=== PATIENT | male | born 1955 | race African-American/Black ===

== ENCOUNTER 2017-01-16 09:17 | Inpatient (IN) | payer OTHER ==
[2017-01-16] MEDS ORDERED: D50W 25 GM/50 ML SYR IVP PRN (15:45)
[2017-01-16] MEDS ORDERED: SENNOSIDES 1 TAB PO PRN (15:46)
[2017-01-16] MEDS ORDERED: BISACODYL 10 MG SUPP PR PRN (15:46)
[2017-01-16] MEDS ORDERED: ACETAMINOPHEN 650 MG/20.3 ML UDCUP PO PRN (16:23)
--- NOTE | 2017-01-16 17:23 | GHP ---
[f rep st] HISTORY AND PHYSICAL POST ADMISSION PHYSICIAN EVALUATION AND REHABILITATION TREATMENT PLAN. DATE OF ADMISSION: 01/16/2017 DATE OF EVALUATION: January 16, 2017. TIME OF EVALUATION: 1530. REFERRING FACILITY: [facility]. IMPAIRMENT GROUP: [id number]. DATE OF ONSET: 01/09/2017. REFERRING PHYSICIAN: Dr. Jimenez. CONSULTING PHYSICIANS: Pulmonary and critical Care Dr. Vargas. PRIMARY CARE PHYSICIAN: Dr. Ari Jacobsen. REHABILITATION DIAGNOSIS: Subarachnoid hemorrhage with debility and cognitive impairment. ETIOLOGIC DIAGNOSIS: Traumatic, closed injury. HISTORY OF PRESENT ILLNESS: Patient is a 61-year-old man who was brought to the emergency room at [facility] for altered mental status. 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 One of the patient's coworkers noticed a large piece of metal had been removed from the gas tank on the vehicle and thought that it may have hit him in the head. He was very confused but alert and oriented x2 in the emergency department. He was denying any pain. Head CT showed a small right-sided subdural hematoma with associated subarachnoid hemorrhage and parenchymal bleeding at the base of the frontal lobe. The right frontal contusion measured 19 mm initially and later 21 mm. There was no midline shift. He was monitored with serial head CT scans, and determined that he did not have a surgical need. He was participating in therapies and ready for transfer to inpatient rehabilitation. HOSPITAL COMPLICATIONS: Included hyponatremia. STUDIES AND LABS IN THE HOSPITAL: I do not have a comprehensive list. LABORATORY STUDIES ON DISCHARGE: Showed hyponatremia with a sodium of 130. Renal function was otherwise within normal limits with a BUN of 21 and a creatinine of 0.94. His glucose was elevated at 154. This was drawn at 7:50 in the morning so it was likely fasting. Most recent head CT done on 01/11/2017 showed: 1. Slight interval enlargement of the right frontal hemorrhagic contusion to 21 mm. 2. Unchanged bifrontal subarachnoid hematomas and anterior parafalcine subdural hematoma. 3. Persistent regional sulcal effacement in the inferior right frontotemporal region without a significant midline shift. 4. Stable layering dense material in the sphenoid sinus. His cervical spine was cleared by CT scan on 01/09/2017. He had moderate central canal stenosis at C3-C4. Chest x-ray on 01/13 showed minimal left lung base atelectasis and otherwise was unremarkable. He had been taking aspirin prior to admission, but this was discontinued. Lisinopril dose was increased from 20 mg to 40 mg daily and minoxidil was added at 5 mg twice daily to achieve better blood pressure control. PRECAUTIONS: He is a fall risk and he has seizure precautions. ACTIVE COMORBIDITIES: He has the active comorbidity of diabetes mellitus with manifestation as a tier 3 comorbidity. He has no tier 1 or tier 2 comorbidities. PAST MEDICAL HISTORY: 1. Diabetes mellitus type 2. 2. Hypertension. PAST SURGICAL HISTORY: Discharge paperwork does not provide nor can he volunteer any past surgical history. PRE-HOSPITAL MEDICATIONS: 1. Amlodipine 10 mg p.o. daily. 2. Lisinopril 20 mg p.o. daily. 3. Aspirin 81 mg p.o. daily. 4. Atorvastatin 10 mg p.o. at bedtime. 5. Metformin 1000 mg p.o. twice daily. ADMISSION MEDICATIONS: 1. Amlodipine 10 mg p.o. daily. 2. Atorvastatin 5 mg p.o. at bedtime. 3. Famotidine 20 mg p.o. twice daily. 4. Levetiracetam 500 mg p.o. twice daily. 5. Lisinopril 40 mg p.o. daily. 6. Metformin 1000 mg p.o. twice daily. 7. Minoxidil 5 mg p.o. twice daily. FAMILY HISTORY: Noncontributory. PSYCHOSOCIAL HISTORY: He is . He lives with his . He has several adult children one of whom is local. He cannot remember the locations of the other two. He is a nonsmoker and nondrinker. 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 REVIEW OF SYSTEMS: He denies headache. He is not in pain otherwise other than some left hip pain with particular movements. He denies vision changes, weakness, numbness or tingling of the extremities. He denies difficulty swallowing. He denies nausea, vomiting, constipation, or diarrhea. He denies chest pain or palpitations. He denies cough or dyspnea. Otherwise, a 10-point review of systems is negative. PHYSICAL EXAM: VITAL SIGNS: Blood pressure is 146/73, heart rate is 73, respiratory rate is 20. Oxygen saturation is 99% on room air. Temperature is 36.8 degrees centigrade. His weight this morning, at [facility], was 95.8 kg. When he was admitted, his weight was recorded of 103.5 kg and at that point his body mass index was 31.8. GENERAL: This is a well-nourished, well- developed, obese man in bed, sleepy, cooperative and in no acute distress. HEENT: Extraocular movements are intact. Pupils are equal, round, and reactive to light. Mucous membranes are moist. Dentition is in good condition. He has halitosis. There are no oropharyngeal mucosal lesions noted and no posterior oropharyngeal mucus. NECK: Supple. HEART: There is a regular rate and rhythm with no murmurs, rubs, or gallops. LUNGS: Clear to auscultation bilaterally. ABDOMEN: Soft, nontender, nondistended with normoactive bowel sounds and no hepatosplenomegaly. EXTREMITIES: There is no cyanosis, clubbing, or edema. Radial and dorsalis pedis pulses are 2+ bilaterally. NEUROLOGIC: He is alert and oriented x3. He has delayed responses and slow processing. Cranial nerves 2-12 are grossly intact. There is no focal weakness. Sensation is intact to light touch. Deep tendon reflexes are 2+ bilaterally at the biceps, patellar, and Achilles tendons. He appears to have a motor planning deficit when asked to sit up though he is eventually able to rise to seated from supine independently and his seated balance appears to be intact. His plantar reflexes bilaterally are downgoing. SKIN: He does not appear to have any rashes or skin lesions. CURRENT LEVEL OF FUNCTION PER THE PREADMISSION SCREEN: Regarding grooming, he required minimal assistance at the sink. For bathing, dressing and toileting he needed assistance. Bed mobility and transfers were accomplished with minimal assistance. He was using a front-wheeled walker. Balance was noted to be poor needing moderate assistance to contact guard assistance. Endurance was poor. He was able to ambulate 300 feet with minimal assistance and a front- wheeled walker. Regarding communication, he was noted to have impaired linguistic skills. Regarding cognition, he was noted to have [id number] cognitive dysfunction needing cueing. He had poor memory, reduced auditory comprehension, disorientation, slow processing and decreased attention. IMPRESSION: Patient is a 61-year-old man who suffered a subdural hematoma and intraparenchymal hemorrhagic contusion of the frontal lobes, primarily the right frontal lobe. Unclear whether this was traumatic or due to hypertension. He was evaluated and treated at [facility] by the Neurosurgery service. Serial head CTs ruled out any need for surgical intervention. He had improved blood pressure control with the increase of lisinopril and the addition of minoxidil and was stabilized and ready for inpatient rehabilitation. He has major deficits in cognition, balance and activities of daily living. He is appropriate for inpatient rehabilitation. He will benefit from physical and occupational therapy to optimize his mobility and activities of daily living and speech therapy to optimize his cognitive function. Additionally, he will have nursing care regarding fall risk, bowel and bladder, medication administration, skin integrity, and medication education and he will have the care of a physician regarding hypertension, diabetes mellitus, and glycemic control and risk for neurologic deterioration. His goal is to return home with his family. For a safe discharge, he will need to achieve modified independence to supervision level for cognition, ADLs, mobility and medication management. There will need to be neurologic education for him and his family as well as diabetic education and nutritional education. He will receive therapy with physical therapy, occupational therapy, and speech and language pathology for 60 minutes per day for each discipline on 5-7 days of the week. His expected duration of stay is 14-17 days. It is anticipated that upon discharge he will continue to benefit from home health services including speech and language pathology, social work and physical therapy. Additionally, he will benefit from a brain injury support group. ASSESSMENT AND PLAN: 1. Debility status post subdural hemorrhage and intraparenchymal brain contusion primarily of the right frontal lobe. Physical and occupational therapy to optimize mobility and activities of daily living. 2. Cognitive impairment status post intracerebral hemorrhages. To be assessed and treated per Speech and Language Pathology. 3. Hypertension. He has had titration and addition of blood pressure medications. It is unclear why he is on minoxidil rather than a diuretic. Will monitor his blood pressure and if it is well controlled will likely make no changes. 4. Diabetes mellitus type 2. Continue metformin. He additionally has been managed on an insulin sliding scale which will be continued. If he is needing significant amounts of insulin, insulin can either be changed to a long-acting formulation at bedtime such as insulin glargine or an additional oral hypoglycemic agent can be added with a goal of avoiding the need for insulin at home. 5. Risk for seizures associated with intracerebral hemorrhage. He has been treated with levetiracetam. There has been no seizure activity per the discharge information available from [facility]. He is to continue levetiracetam for 2 more days through 01/18/2017. 6. Hyponatremia. There is no order for fluid restriction. This morning his sodium was 130. I will repeat a BMP tomorrow morning and he can be evaluated for a need for fluid restriction. 7. Dense material seen in the sinuses on head CT and halitosis. Evaluate further regarding symptoms of sinusitis and if there are symptoms that can be treated with antibiotics and/or a decongestant and nasal steroid. /[id number]/MODL MTDD
[2017-01-16] MEDS: metFORMIN HCL 500 MG TAB PO SCH (17:47)
[2017-01-16] MEDS: ACETAMINOPHEN 325 MG TAB PO PRN (17:47)
[2017-01-16] MEDS: INSULIN LISPRO 100 UNIT/ML SC SCH (18:32)
[2017-01-16] MEDS: ATORVASTATIN CALCIUM 10 MG TAB PO SCH (20:25)
[2017-01-16] MEDS: levETIRAcetam 500 MG TAB PO SCH (20:25)
[2017-01-16] MEDS: FAMOTIDINE 20 MG TAB PO SCH (20:26)
[2017-01-16] MEDS: MINOXIDIL 2.5 MG TAB PO SCH (20:26)
[2017-01-16] MEDS: AQUAPHOR OINTMENT 3.5 OZ JAR TP SCH (20:29)
[2017-01-17 07:00] LABS: % IMMATURE GRANULYOCYTES 0.3 % (0.0-1.1); ABSOLUTE IMMATURE GRANULOCYTES 0.03 10^3/uL (0.00-0.10); ADD DIFF? NO; ADD MORPH? NO; ADD SCAN? NO; ATYPICAL LYMPHOCYTE FLAG 10 (0-99); FRAGMENT RBC FLAG 0 (0-99); HEMOGLOBIN 14.6 g/dL (13.7-17.5); LEFT SHIFT FLG 0 (0-99); LIPEMIA HEMOLYSIS FLAG 80 (0-99); MEAN CELL HEMOGLOBIN 26.3 pg (27.9-34.1); MEAN CELL HEMOGLOBIN CONCENTR. 32.4 g/dL (32.4-36.7); MEAN CELL VOLUME 81.1 fL (81.5-99.8); MEAN PLATELET VOLUME 10.2 fL (8.7-11.7); PLATELET CLUMPS FLAG 0 (0-99); PLATELET COUNT 325 10^3/uL (150-400); RED BLOOD CELL COUNT 5.55 10^6/uL (4.40-6.38); RED CELL DISTRIBUTION WIDTH 14.1 % (11.5-15.2)
[2017-01-17 07:08] LABS: ANION GAP 14 mEq/L (8-16); CALCIUM 9.3 mg/dL (8.5-10.4); CARBON DIOXIDE 23 mEq/l (22-31); CHLORIDE 97 mEq/L (97-110); GLOMERULAR FILTRATION RATE > 60; GLUCOSE 147 mg/dL (70-100); POTASSIUM 4.3 mEq/L (3.5-5.2); SODIUM 134 mEq/L (134-144)
[2017-01-17] MEDS: ACETAMINOPHEN 325 MG TAB PO PRN ×2 (09:28→16:15)
[2017-01-17] MEDS: FAMOTIDINE 20 MG TAB PO SCH ×2 (09:28→21:20)
[2017-01-17] MEDS: INSULIN LISPRO 100 UNIT/ML SC SCH ×3 (09:28→18:54)
[2017-01-17] MEDS: metFORMIN HCL 500 MG TAB PO SCH ×2 (09:30→18:47)
[2017-01-17] MEDS: LISINOPRIL 40 MG TAB PO SCH (09:30)
[2017-01-17] MEDS: levETIRAcetam 500 MG TAB PO SCH ×2 (09:30→21:20)
[2017-01-17] MEDS: AQUAPHOR OINTMENT 3.5 OZ JAR TP SCH ×2 (09:30→21:21)
[2017-01-17] MEDS: MINOXIDIL 2.5 MG TAB PO SCH ×2 (09:31→21:18)
--- NOTE | 2017-01-17 10:44 | PDOREHIP ---
Admission [facility] - Admission - 3 Day Assessment Period Admission Date/Day 1: 01/16/17 Day 2: 01/17/17 Day 3: 01/18/17 - Active Diagnoses Comorbidities and Co-existing Conditions at Admission: . None of the Above - Skin Conditions Unhealed Pressure Ulcer (1 or more/Stage 1 or >)-Admission: 0. No
--- NOTE | 2017-01-17 10:50 | SOAPPROG ---
SOAP Progress Note Assessment/Plan: Assessment: Patient is a 61-year-old man who suffered a subdural hematoma and intraparenchymal hemorrhagic contusion of the frontal lobes, primarily the right frontal lobe, history most consistent with TBI. He was evaluated and treated at [facility] by the Neurosurgery service, non operatively. Serial head CTs ruled out any need for surgical intervention. 01/17/2017- Patient is doing well today. Labs indicates an elevated BUN to creatinine ratio indicating some dehydration. Encouraged PO fluids. He does not complain of any history of sinus problems, will avoid treating with antibiotics for now. His the street seems consistent with a traumatic brain injury, however the severity is unclear based on the history was able to obtain from him today. It would be at least mild, complicated, but likely more severe. Also, given his recent tachycardia and drop in blood pressure, I will also check a D dimer. He denies any chest pain or shortness of breath that would be concerning for a pulmonary embolism, but will follow-up with additional tests if necessary. He is currently not on anticoagulation for DVT prophylaxis. He is outside of the window of most acute risk for bleeding, and he is at high risk for DVT development. Left hip pain possibly after trauma, getting x-rays and treating symptomatically. This is the first time meeting and evaluating this patient and all medical issues are new to me. 1. Impairments in mobility and self care status post subdural hemorrhage, subdural hematoma and intraparenchymal brain contusion primarily of the right frontal lobe. Physical and occupational therapy to optimize mobility and activities of daily living. 2. Cognitive impairment status post intracerebral hemorrhages. To be assessed and treated per Speech and Language Pathology. 3. Hypertension. He has had titration and addition of blood pressure medications. It is unclear why he is on minoxidil rather than a diuretic. Will monitor his blood pressure and if it is well controlled will likely make no changes. 4. Diabetes mellitus type 2. Continue metformin. He additionally has been managed on an insulin sliding scale which will be continued. If he is needing significant amounts of insulin, insulin can either be changed to a long-acting formulation at bedtime such as insulin glargine or an additional oral hypoglycemic agent can be added with a goal of avoiding the need for insulin at home. 5. Risk for seizures associated with intracerebral hemorrhage. He has been treated with levetiracetam. There has been no seizure activity per the discharge information available from [facility]. He is to continue levetiracetam for 2 more days through 01/18/2017. 6. He has no immobility and he has ambulated as far as 300 feet. He is not at high risk for deep venous thrombosis and will not receive any pharmacologic prophylaxis. 7. Hyponatremia. There is no order for fluid restriction. This morning his sodium was 130. I will repeat a BMP tomorrow morning and he can be evaluated for a need for fluid restriction. 8. Dense material seen in the sinuses on head CT and halitosis. Evaluate further regarding symptoms of sinusitis and if there are symptoms that can be treated with antibiotics and/or a decongestant and nasal steroid. 9. Prophylaxis: start low dose heparin for DVT prophylaxis. Checking D dimer to rule out existing DVT. Based on record review, I do not see that he has had Doppler studies. 10. Hip pain, left: patient had hip pain after his fall, unclear temporal relationship. Interfering with therapy. Plan to get hip x-rays and treat symptomatically. 11. Dehydration: Elevated BUN to creatinine ratio, encouraging PO fluids. He has a PICC if needed for IV fluids. Dispo: ELOS 14-17 days, plan to discharge home with family, goal of mod I to supervision for ADLs, mobility, and cog issues. Plan: 01/17/17 10:46 01/17/17 10:55 01/17/17 11:08 Subjective: CC: hip pain, blood pressure changes No acute events overnight. Patient endorses some left-sided hip pain worse with standing, relieved by lying down. Temporal relationship to his incident is unclear, but was noticed for the first time a few days after his admission to the hospital. Nurse reported to me today that he was a bit vasovagal with the pain on standing today for therapies. He also denies remembering the accident, his spouse explained the presence of a heavy plate guarding a gas tank that was on the floor near where he was. He was working on this overhead. Patient denies any shortness of breath or chest pain. Has never had blood clots before. Denies any lower extremity swelling. Objective: Vital Signs Temp Pulse Resp BP Pulse Ox 37.2 C 111 H 14 125/80 H 94 01/17/17 09:20 01/17/17 09:20 01/17/17 08:48 01/17/17 09:31 01/17/17 08:48 Laboratory Results 01/17/17 05:30 01/17/17 05:30 01/16/17 01/17/17 01/18/17 05:59 05:59 05:59 Intake Total 100 125 Output Total 1200 Balance -1100 125 Physical Exam - Physical Exam General Appearance: alert (but sleepy), no apparent distress EENT: No scleral icterus (R), No scleral icterus (L) Respiratory: normal breath sounds, No respiratory distress, No accessory muscle use, No wheezing Cardiac/Chest: normal peripheral pulses, regular rate, rhythm, No edema Skin: normal color, warm/dry, No cyanosis Extremities: other ( He had tenderness at the superior aspect of the left greater trochanter, no swelling, no redness, he had pain with internal rotation that localized to the lateral hip, pain with internal rotation with flexion also in the lateral hip, and some groin pain when the hip was manually abducted. ), No swelling Neuro/Psych: normal mood/affect ICD10 Worksheet Patient Problems: Problems Problem Status Onset Hypotension Acute Left hip pain Acute DM2 (diabetes mellitus, type 2) Acute HTN (hypertension) Acute SDH (subdural hematoma) Acute - ICD10 Problem Qualifiers (1) Left hip pain (2) Hypotension Qualifiers: Hypotension type: orthostatic hypotension Trimester: T Qualified Code(s) : I95.1 - Orthostatic hypotension
[2017-01-17] MEDS: HEPARIN 5,000 UNIT/0.5 ML SYR SC SCH ×2 (16:16→21:18)
[2017-01-17] MEDS: ATORVASTATIN CALCIUM 10 MG TAB PO SCH (21:19)
[2017-01-18] MEDS: FAMOTIDINE 20 MG TAB PO SCH ×2 (09:42→21:06)
[2017-01-18] MEDS: INSULIN LISPRO 100 UNIT/ML SC SCH ×3 (09:42→17:12)
[2017-01-18] MEDS: HEPARIN 5,000 UNIT/0.5 ML SYR SC SCH ×3 (09:42→21:10)
[2017-01-18] MEDS: ACETAMINOPHEN 325 MG TAB PO PRN ×2 (09:42→14:43)
[2017-01-18] MEDS: levETIRAcetam 500 MG TAB PO SCH ×2 (09:43→21:06)
[2017-01-18] MEDS: metFORMIN HCL 500 MG TAB PO SCH ×2 (09:43→17:12)
[2017-01-18] MEDS: MINOXIDIL 2.5 MG TAB PO SCH ×2 (09:43→21:09)
[2017-01-18] MEDS: AQUAPHOR OINTMENT 3.5 OZ JAR TP SCH ×2 (09:43→21:09)
[2017-01-18] MEDS: LISINOPRIL 40 MG TAB PO SCH (09:44)
[2017-01-18] MEDS: METHYL SALICYLATE/MENTHOL OINTMENT TP PRN (11:29)
--- NOTE | 2017-01-18 11:36 | SOAPPROG ---
SOAP Progress Note Assessment/Plan: Assessment: Patient is a 61-year-old man who suffered a subdural hematoma and intraparenchymal hemorrhagic contusion of the frontal lobes, primarily the right frontal lobe, history most consistent with TBI. He was evaluated and treated at [facility] by the Neurosurgery service, non operatively. Serial head CTs ruled out any need for surgical intervention. 01/18/2017- Hip plain films were negative, sodium in the normal range. Overall doing well, no particular concerns today. He was somewhat sleepy, hip pain is improving with some thematic managements, family was not available for further discussion. Continue therapy plan. 1. Impairments in mobility and self care status post subdural hemorrhage, subdural hematoma and intraparenchymal brain contusion primarily of the right frontal lobe. Physical and occupational therapy to optimize mobility and activities of daily living. 2. Cognitive impairment status post intracerebral hemorrhages. To be assessed and treated per Speech and Language Pathology. 3. Hypertension. He has had titration and addition of blood pressure medications. It is unclear why he is on minoxidil rather than a diuretic. Will monitor his blood pressure and if it is well controlled will likely make no changes. 4. Diabetes mellitus type 2. Continue metformin. He additionally has been managed on an insulin sliding scale which will be continued. If he is needing significant amounts of insulin, insulin can either be changed to a long-acting formulation at bedtime such as insulin glargine or an additional oral hypoglycemic agent can be added with a goal of avoiding the need for insulin at home. 5. Risk for seizures associated with intracerebral hemorrhage. He has been treated with levetiracetam. There has been no seizure activity per the discharge information available from [facility]. He is to continue levetiracetam through 01/18/2017, then stop. 6. Immobility: has been in bed with pain, heparin sc TID for DVT prophylaxis. 7. Hyponatremia. There is no order for fluid restriction. Na on 01/17 was 134 , monitor. 8. Dense material seen in the sinuses on head CT and halitosis. Evaluate further regarding symptoms of sinusitis and if there are symptoms that can be treated with antibiotics and/or a decongestant and nasal steroid. 9. Tachycardia and hypotension- was episodic, slightly elevated d-dimer, but history of recent minor trauma. Continue to monitor with a low threshold for further imaging if indicated. 10. Hip pain, left: patient had hip pain after his fall, unclear temporal relationship. Interfering with therapy. Plan to get hip x-rays and treat symptomatically. 11. Dehydration: Elevated BUN to creatinine ratio, encouraging PO fluids. He has a PICC if needed for IV fluids. Dispo: ELOS 14-17 days, plan to discharge home with family, goal of mod I to supervision for ADLs, mobility, and cog issues. 01/17/17 10:46 01/17/17 10:55 01/17/17 11:08 01/18/17 11:32 Subjective: CC: hip pain No acute events overnight, patient endorses that the hip pain continues to improve. Mostly with symptomatic management with pain medications, heat and cold. Plain films showed enthesopathy, no fractures. No chest pain, shortness of breath, or new numbness, tingling, or weakness. Objective: Vital Signs Temp Pulse Resp BP Pulse Ox 37.0 C 100 15 144/68 H 95 01/18/17 08:00 01/18/17 09:38 01/18/17 08:00 01/18/17 09:43 01/18/17 08:00 Laboratory Results 01/17/17 05:30 01/17/17 05:30 01/17/17 01/18/17 01/19/17 05:59 05:59 05:59 Intake Total 100 1275 500 Output Total 1200 800 Balance -1100 475 500 Physical Exam - Physical Exam General Appearance: WD/WN, alert, no apparent distress EENT: No scleral icterus (R), No scleral icterus (L) Respiratory: normal breath sounds, No respiratory distress, No accessory muscle use Cardiac/Chest: normal peripheral pulses, regular rate, rhythm, No edema Skin: normal color, warm/dry, No cyanosis Extremities: normal inspection, No pedal edema, No swelling Neuro/Psych: normal mood/affect ICD10 Worksheet Patient Problems: Problems Problem Status Onset Hypotension Acute Left hip pain Acute DM2 (diabetes mellitus, type 2) Acute HTN (hypertension) Acute SDH (subdural hematoma) Acute - ICD10 Problem Qualifiers (1) Left hip pain (2) Hypotension Qualifiers: Hypotension type: orthostatic hypotension Trimester: T Qualified Code(s) : I95.1 - Orthostatic hypotension
[2017-01-18] MEDS: ATORVASTATIN CALCIUM 10 MG TAB PO SCH (21:05)
[2017-01-19] MEDS: HEPARIN 5,000 UNIT/0.5 ML SYR SC SCH ×3 (06:03→21:13)
[2017-01-19] MEDS: INSULIN LISPRO 100 UNIT/ML SC SCH ×3 (08:44→17:28)
[2017-01-19] MEDS: FAMOTIDINE 20 MG TAB PO SCH ×2 (08:45→21:12)
[2017-01-19] MEDS: metFORMIN HCL 500 MG TAB PO SCH ×2 (08:45→17:26)
[2017-01-19] MEDS: LISINOPRIL 40 MG TAB PO SCH (08:46)
[2017-01-19] MEDS: MINOXIDIL 2.5 MG TAB PO SCH (08:49)
--- NOTE | 2017-01-19 09:08 | SOAPPROG ---
SOAP Progress Note Assessment/Plan: Assessment: 61-year-old man who suffered a subdural hematoma and intraparenchymal hemorrhagic contusion of the frontal lobes, primarily the right frontal lobe, history most consistent with TBI. He was evaluated and treated at [facility] by the Neurosurgery service, non operatively. Serial head CTs ruled out any need for surgical intervention. * Debility status post subdural hemorrhage and intraparenchymal brain contusion primarily of the right frontal lobe, with impairments in mobility and self care . Physical and occupational therapy to optimize mobility and activities of daily living. * Cognitive impairment status post intracerebral hemorrhages. Slow processing. Continue Speech and Language Pathology. * Hypertension. Orthostatic by pulse yesterday 01/18/17. D/C minoxidil. Was dry on BMP 01/17/17. Will give IV fluids, 500 cc NS slowly today 01/19/17; repeat BMP in AM 01/20/17. * Lethargy. Nothing else neurologic indicating need for repeat head CT. Observe for improvement with hydration. * Diabetes mellitus type 2. Continue metformin. BS not high enough to require insulin. * L hip pain. Normal joint on XR; iliac enthesopathy is likely an incidental finding. Continue APAP; additional analgesics if pain interferes with function. * Risk for seizures associated with intracerebral hemorrhage. Levetiracetam discontinued after 01/18/2017. Continue seizure precautions. * Hyponatremia. Resolved. Sodium was 130 on 01/16/17; 134 on 01/17/17. * Dense material seen in the sinuses on head CT and halitosis. Evaluate further regarding symptoms of sinusitis and if there are symptoms that can be treated with antibiotics and/or a decongestant and nasal steroid. 01/19/17 13:32 Subjective: C/O ARRIAGA, 2/10, over eyes. Worsens to 4/10 with standing. No cough/dyspnea, no f /c. Objective: Vital Signs Temp Pulse Resp BP Pulse Ox 36.4 C 81 16 115/61 94 01/19/17 06:31 01/19/17 06:31 01/19/17 06:31 01/19/17 06:31 01/19/17 06:31 Laboratory Results 01/17/17 05:30 01/17/17 05:30 01/18/17 01/19/17 01/20/17 05:59 05:59 05:59 Intake Total 7373 1410 Output Total 800 800 Balance 475 610 Physical Exam - Physical Exam General Appearance: WD/WN, alert, no apparent distress Respiratory: normal breath sounds, No crackles, No rhonchi, No wheezing Cardiac/Chest: regular rate, rhythm, No edema Skin: normal color, warm/dry Neuro/Psych: no motor/sensory deficits, alert, normal mood/affect, cognition abnormalities (slow processing), No motor weakness ICD10 Worksheet Patient Problems: Problems Problem Status Onset Hypotension Acute Left hip pain Acute DM2 (diabetes mellitus, type 2) Acute HTN (hypertension) Acute SDH (subdural hematoma) Acute
[2017-01-19] MEDS: AQUAPHOR OINTMENT 3.5 OZ JAR TP SCH ×2 (10:59→21:12)
[2017-01-19] MEDS ORDERED: ALTEPLASE 2 MG VIAL IVP ONE (13:59)
[2017-01-19] MEDS ORDERED: NS 1,000 ML IV SCH (14:00)
[2017-01-19] MEDS: ATORVASTATIN CALCIUM 10 MG TAB PO SCH (21:11)
[2017-01-20] MEDS: HEPARIN 5,000 UNIT/0.5 ML SYR SC SCH ×3 (05:46→20:58)
[2017-01-20] MEDS: metFORMIN HCL 500 MG TAB PO SCH ×2 (07:46→17:31)
[2017-01-20] MEDS: INSULIN LISPRO 100 UNIT/ML SC SCH ×3 (07:46→17:30)
[2017-01-20] MEDS: FAMOTIDINE 20 MG TAB PO SCH ×2 (07:47→20:57)
[2017-01-20] MEDS: LISINOPRIL 40 MG TAB PO SCH (07:47)
[2017-01-20] MEDS: ACETAMINOPHEN 325 MG TAB PO PRN ×2 (07:48→13:03)
[2017-01-20] MEDS: AQUAPHOR OINTMENT 3.5 OZ JAR TP SCH ×2 (07:48→21:01)
[2017-01-20] MEDS: METHYL SALICYLATE/MENTHOL OINTMENT TP PRN ×2 (07:48→13:05)
--- NOTE | 2017-01-20 10:43 | SOAPPROG ---
SOAP Progress Note Assessment/Plan: Assessment: 61-year-old man who suffered a subdural hematoma and intraparenchymal hemorrhagic contusion of the frontal lobes, primarily the right frontal lobe, history most consistent with TBI. He was evaluated and treated at [facility] by the Neurosurgery service, non operatively. Serial head CTs ruled out any need for surgical intervention. * Debility status post subdural hemorrhage and intraparenchymal brain contusion primarily of the right frontal lobe, with impairments in mobility and self care . Physical and occupational therapy to optimize mobility and activities of daily living. * Cognitive impairment status post intracerebral hemorrhages. Slow processing. Continue Speech and Language Pathology. * Hypertension. Orthostatic by pulse yesterday 01/18/17. D/C minoxidil. Was dry on BMP 01/17/17. Will give IV fluids, 500 cc NS slowly today 01/19/17. * Lethargy. Nothing else neurologic indicating need for repeat head CT. Improved 01/20/17 after IV hydration. * Diabetes mellitus type 2. Continue metformin. BS not high enough to require insulin. Consider second PO agent; await normalization of appetite & PO intake. * L hip pain. Normal joint on XR; iliac enthesopathy is likely an incidental finding. Continue APAP; additional analgesics if pain interferes with function. Modalities per PT. Chronic/stable conditions: * Risk for seizures associated with intracerebral hemorrhage. Levetiracetam discontinued after 01/18/2017. Continue seizure precautions. * Hyponatremia. Resolved. Sodium was 130 on 01/16/17; 134 on 01/17/17. * Dense material seen in the sinuses on head CT and halitosis. Halitosis resolved. No S/Sx sinusitis. 01/20/17 10:40 Subjective: No complaints. Denies ARRIAGA or lightheadedness. Nursing reports loose stool. More alert today. Slept well. Has L hip pain worse after activity with PT. Objective: Vital Signs Temp Pulse Resp BP Pulse Ox 37.2 C 80 16 138/70 H 94 01/20/17 05:53 01/20/17 07:45 01/20/17 05:53 01/20/17 07:47 01/20/17 05:53 Laboratory Results 01/17/17 05:30 01/17/17 05:30 01/19/17 01/20/17 01/21/17 05:59 05:59 05:59 Intake Total 1410 1571 940 Output Total 800 300 Balance 610 1271 940 Physical Exam - Physical Exam General Appearance: WD/WN, alert, no apparent distress Respiratory: normal breath sounds, No crackles, No rhonchi, No wheezing Cardiac/Chest: regular rate, rhythm, No edema Skin: normal color, warm/dry Neuro/Psych: alert, normal mood/affect, cognition abnormalities (Slow processing ) ICD10 Worksheet Patient Problems: Problems Problem Status Onset Hypotension Acute Left hip pain Acute DM2 (diabetes mellitus, type 2) Acute HTN (hypertension) Acute SDH (subdural hematoma) Acute
[2017-01-20] MEDS: BENEFIBER/NUTRISOURCE FIBER PKT 1 EACH PO SCH ×2 (14:01→20:57)
[2017-01-20] MEDS: ATORVASTATIN CALCIUM 10 MG TAB PO SCH (20:57)
[2017-01-21] MEDS: HEPARIN 5,000 UNIT/0.5 ML SYR SC SCH ×3 (06:29→21:08)
[2017-01-21] MEDS: INSULIN LISPRO 100 UNIT/ML SC SCH ×3 (08:28→17:44)
[2017-01-21] MEDS: BENEFIBER/NUTRISOURCE FIBER PKT 1 EACH PO SCH ×2 (09:26→21:08)
[2017-01-21] MEDS: metFORMIN HCL 500 MG TAB PO SCH ×2 (09:26→17:33)
[2017-01-21] MEDS: FAMOTIDINE 20 MG TAB PO SCH ×2 (09:27→21:16)
[2017-01-21] MEDS: LISINOPRIL 40 MG TAB PO SCH (09:27)
--- NOTE | 2017-01-21 14:23 | SOAPPROG ---
SOAP Progress Note Assessment/Plan: Assessment: 61-year-old man who suffered a subdural hematoma and intraparenchymal hemorrhagic contusion of the frontal lobes, primarily the right frontal lobe, history most consistent with TBI. He was evaluated and treated at [facility] by the Neurosurgery service, non operatively. Serial head CTs ruled out any need for surgical intervention. * Debility status post subdural hemorrhage and intraparenchymal brain contusion primarily of the right frontal lobe, with impairments in mobility and self care . Initial FIM 61 on 01/21/17. Walked 120' FWW SBA. Needs extra time for motor planning for bed mobility. and cues to initiation and persist with activities. Hip pain is distracting. Continue physical and occupational therapy to optimize mobility and activities of daily living. * Cognitive impairment status post intracerebral hemorrhages. 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 Slow processing impacts communication, memory, problem solving and executive functioning. Continue Speech and Language Pathology. * Hypertension. Orthostatic by pulse 01/18/17. D/C minoxidil. Was dry on BMP . Received IV fluids 01/19/17 and was more alert . BP adequately controlled. * Lethargy. Nothing else neurologic indicating need for repeat head CT. Improved 01/20/17 after IV hydration. * Diabetes mellitus type 2. Continue metformin. BS not high enough to require insulin. Consider second PO agent; await normalization of appetite & PO intake. * L hip pain. Normal joint on XR; iliac enthesopathy is likely an incidental finding. Exam c/w possible trochanteric bursitis. Will schedule celecoxib. Continue APAP PRN. Modalities per PT. Consider MRI scan vs referral for bursa injection. Chronic/stable conditions: * Risk for seizures associated with intracerebral hemorrhage. Levetiracetam discontinued after 01/18/2017. Continue seizure precautions. * Hyponatremia. Resolved. Sodium was 130 on 01/16/17; 134 on 01/17/17. * Dense material seen in the sinuses on head CT and halitosis. Halitosis resolved. No S/Sx sinusitis. Attended staffing, 15 min. D/W case mgmt, nursing, PT, OT, GLOBAL COORDINATOR. Lives with ; has local daughter. 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 Goal of independence for discharge home. Discharge date set for 02/04/17. 01/21/17 14:25 Subjective: c/O L hip pain, interferes with therapies. OK once he's up and walking. Feels stiff and painful adrian in AM upon arising. O/W w/out complaint. No cough/ dyspnea, f/c. Objective: Vital Signs Temp Pulse Resp BP Pulse Ox 37.0 C 81 16 126/67 H 96 01/21/17 07:06 01/21/17 07:06 01/21/17 07:06 01/21/17 09:27 01/21/17 07:06 Laboratory Results 01/17/17 05:30 01/17/17 05:30 01/20/17 01/21/17 01/22/17 05:59 05:59 05:59 Intake Total 1571 2170 236 Output Total 300 Balance 1271 2170 236 - Time Spent With Patient Time Spent With Patient: Greater than 35 minutes floor time today, including more than 50% of time in coordination of care during staffing meeting, and counseling patient. Physical Exam - Physical Exam General Appearance: WD/WN, alert, no apparent distress Respiratory: normal breath sounds, No crackles, No rhonchi Cardiac/Chest: regular rate, rhythm, No bradycardia, No tachycardia, No diastolic murmur, No systolic murmur Skin: normal color, warm/dry Extremities: other (tender pasterior aspect of L greater trochanter) Neuro/Psych: no motor/sensory deficits, alert, normal mood/affect, oriented x 3 , cognition abnormalities (slow processing) ICD10 Worksheet Patient Problems: Problems Problem Status Onset Hypotension Acute Left hip pain Acute DM2 (diabetes mellitus, type 2) Acute HTN (hypertension) Acute SDH (subdural hematoma) Acute
[2017-01-21] MEDS: AQUAPHOR OINTMENT 3.5 OZ JAR TP SCH ×2 (17:41→21:16)
[2017-01-21] MEDS: ACETAMINOPHEN 325 MG TAB PO PRN (20:15)
[2017-01-21] MEDS: ATORVASTATIN CALCIUM 10 MG TAB PO SCH (21:07)
[2017-01-22] MEDS: HEPARIN 5,000 UNIT/0.5 ML SYR SC SCH ×3 (05:55→21:41)
[2017-01-22] MEDS: INSULIN LISPRO 100 UNIT/ML SC SCH ×3 (08:09→20:08)
[2017-01-22] MEDS: metFORMIN HCL 500 MG TAB PO SCH ×2 (08:11→17:40)
[2017-01-22] MEDS: ACETAMINOPHEN 325 MG TAB PO PRN ×2 (08:12→14:18)
[2017-01-22] MEDS: BENEFIBER/NUTRISOURCE FIBER PKT 1 EACH PO SCH ×2 (09:20→21:42)
[2017-01-22] MEDS: LISINOPRIL 40 MG TAB PO SCH (09:20)
[2017-01-22] MEDS: FAMOTIDINE 20 MG TAB PO SCH ×2 (09:20→21:40)
--- NOTE | 2017-01-22 09:29 | SOAPPROG ---
SOAP Progress Note Assessment/Plan: Assessment: 61-year-old man who suffered a subdural hematoma and intraparenchymal hemorrhagic contusion of the frontal lobes, primarily the right frontal lobe, history most consistent with TBI (probably moderate in severity given [employer] of probably > 24 hr, intracranial hemorrhage). He was evaluated and treated at [facility] by the Neurosurgery service, non operatively. Serial head CTs ruled out any need for surgical intervention. 01/22/2017 doing very well today, continues to have chronic bilateral hip and low back pain, he states it is not impairing his current progress and is managed by heat, ice, and PRN medications. Continue to monitor, continue plan below. * Debility status post subdural hemorrhage and intraparenchymal brain contusion primarily of the right frontal lobe, with impairments in mobility and self care . Initial FIM 61 on 01/21/17. Walked 120' FWW SBA. Needs extra time for motor planning for bed mobility. and cues to initiation and persist with activities. Continue physical and occupational therapy to optimize mobility and activities of daily living. * Cognitive impairment status post intracerebral hemorrhages. 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 Slow processing impacts communication, memory, problem solving and executive functioning. Continue Speech and Language Pathology. * Hypertension. Orthostatic by pulse 01/18/17. D/C minoxidil. Was dry on BMP . Received IV fluids 01/19/17 and was more alert . BP adequately controlled. * Lethargy. Nothing else neurologic indicating need for repeat head CT. Improved 01/20/17 after IV hydration. * Diabetes mellitus type 2. Continue metformin. BS not high enough to require insulin. Consider second PO agent; await normalization of appetite & PO intake. * L hip pain. Normal joint on XR; iliac enthesopathy is likely an incidental finding. Exam c/w possible trochanteric bursitis. Will schedule celecoxib. Continue APAP PRN. Modalities per PT. Consider MRI scan vs referral for bursa injection. Chronic/stable conditions: * Risk for seizures associated with intracerebral hemorrhage. Levetiracetam discontinued after 01/18/2017. Continue seizure precautions. * Hyponatremia. Resolved. Sodium was 130 on 01/16/17; 134 on 01/17/17. * Dense material seen in the sinuses on head CT and halitosis. Halitosis resolved. No S/Sx sinusitis. Lives with ; has local daughter. 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 Goal of independence for discharge home. Discharge date set for 02/04/17. 01/17/17 10:46 01/17/17 10:55 01/17/17 11:08 01/18/17 11:32 01/22/17 09:25 01/22/17 09:28 Subjective: CC: hip pain no acute events overnight. Patient continues to participate well in therapies, he is happy with progress. Glucose 87 - 178. he endorses some continued bilateral back/hip pain, feels that it is adequately managed with PRN medications and with heat and ice. He states it is premorbid, similar level of pain compared to before his accident. He also mentioned that the first thing he remembers after the accident as being on a regular acute-care floor in the hospital, not the emergency department or the ICU. Objective: Vital Signs Temp Pulse Resp BP Pulse Ox 36.8 C 86 16 121/72 H 96 01/22/17 06:01 01/22/17 06:01 01/22/17 06:01 01/22/17 09:21 01/22/17 06:01 Laboratory Results 01/17/17 05:30 01/17/17 05:30 01/21/17 01/22/17 01/23/17 05:59 05:59 05:59 Intake Total 2170 472 350 Balance 2170 472 350 Physical Exam - Physical Exam General Appearance: WD/WN, alert, no apparent distress Respiratory: normal breath sounds, No respiratory distress, No accessory muscle use Cardiac/Chest: normal peripheral pulses, regular rate, rhythm, No edema Skin: normal color, warm/dry, No cyanosis Extremities: pedal edema, other (tender musculature in posterior hips), No swelling Neuro/Psych: alert, normal mood/affect, oriented x 3 ICD10 Worksheet Patient Problems: Problems Problem Status Onset Hypotension Acute Left hip pain Acute DM2 (diabetes mellitus, type 2) Acute HTN (hypertension) Acute SDH (subdural hematoma) Acute - ICD10 Problem Qualifiers (1) Left hip pain (2) Hypotension Qualifiers: Hypotension type: orthostatic hypotension Trimester: T Qualified Code(s) : I95.1 - Orthostatic hypotension
[2017-01-22] MEDS: AQUAPHOR OINTMENT 3.5 OZ JAR TP SCH ×2 (14:13→21:46)
[2017-01-22] MEDS: ATORVASTATIN CALCIUM 10 MG TAB PO SCH (21:39)
[2017-01-23] MEDS: HEPARIN 5,000 UNIT/0.5 ML SYR SC SCH ×3 (05:34→20:55)
[2017-01-23] MEDS: ACETAMINOPHEN 325 MG TAB PO PRN ×3 (09:35→18:06)
[2017-01-23] MEDS: FAMOTIDINE 20 MG TAB PO SCH ×2 (09:37→20:54)
[2017-01-23] MEDS: LISINOPRIL 40 MG TAB PO SCH (09:37)
[2017-01-23] MEDS: BENEFIBER/NUTRISOURCE FIBER PKT 1 EACH PO SCH ×2 (09:37→20:55)
[2017-01-23] MEDS: INSULIN LISPRO 100 UNIT/ML SC SCH ×3 (09:37→17:54)
[2017-01-23] MEDS: metFORMIN HCL 500 MG TAB PO SCH ×2 (09:38→18:07)
[2017-01-23] MEDS: METHYL SALICYLATE/MENTHOL OINTMENT TP PRN (09:43)
[2017-01-23] MEDS: AQUAPHOR OINTMENT 3.5 OZ JAR TP SCH ×2 (09:44→21:01)
--- NOTE | 2017-01-23 13:55 | SOAPPROG ---
SOAP Progress Note Assessment/Plan: Assessment: 61-year-old man who suffered a subdural hematoma and intraparenchymal hemorrhagic contusion of the frontal lobes, primarily the right frontal lobe, history most consistent with TBI. He was evaluated and treated at [facility] by the Neurosurgery service, non operatively. Serial head CTs ruled out any need for surgical intervention. * Debility status post subdural hemorrhage and intraparenchymal brain contusion primarily of the right frontal lobe, with impairments in mobility and self care . Initial FIM 61 on 01/21/17. Walked 120' FWW SBA. Needs extra time for motor planning for bed mobility. and cues to initiation and persist with activities. Hip pain is distracting. Continue physical and occupational therapy to optimize mobility and activities of daily living. * Cognitive impairment status post intracerebral hemorrhages. 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 Slow processing impacts communication, memory, problem solving and executive functioning. Continue Speech and Language Pathology. * Hypertension. Orthostatic by pulse 01/18/17. D/C minoxidil. Was dry on BMP . Received IV fluids 01/19/17 and was more alert . BP adequately controlled. * Lethargy. Nothing else neurologic indicating need for repeat head CT. Improved 01/20/17 after IV hydration. * Diabetes mellitus type 2. Continue metformin. Has used some insulin as PO intake improves. Start glipizide 2.5 mg PO BID 01/23/17. Continue to monitor. * L hip pain. Normal joint on XR; iliac enthesopathy is likely an incidental finding. Exam c/w possible trochanteric bursitis. Will schedule celecoxib. Continue APAP PRN. Modalities per PT. Consider MRI scan vs referral for bursa injection. Chronic/stable conditions: * Risk for seizures associated with intracerebral hemorrhage. Levetiracetam discontinued after 01/18/2017. Continue seizure precautions. * Hyponatremia. Resolved. Sodium was 130 on 01/16/17; 134 on 01/17/17. * Dense material seen in the sinuses on head CT and halitosis. Halitosis resolved. No S/Sx sinusitis. Lives with ; has local daughter. 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 Goal of independence for discharge home. Discharge date set for 02/04/17. 05/26/17 13:55 Subjective: C/O R hip pain, worst when sitting up, better standing or supine. Also pain across posterior pelvis. O/W w/out complaints. No cough/dyspnea, f/c. Objective: Vital Signs Temp Pulse Resp BP Pulse Ox 36.6 C 58 L 16 130/78 H 98 01/23/17 06:25 01/23/17 06:25 01/23/17 06:25 01/23/17 09:37 01/23/17 06:25 Laboratory Results 01/17/17 05:30 01/17/17 05:30 01/22/17 01/23/17 01/24/17 05:59 05:59 05:59 Intake Total 472 1110 540 Output Total 150 Balance 472 960 540 Physical Exam - Physical Exam General Appearance: WD/WN, alert, no apparent distress Respiratory: normal breath sounds, No crackles, No rhonchi, No wheezing Cardiac/Chest: regular rate, rhythm, No edema Skin: normal color, warm/dry Neuro/Psych: no motor/sensory deficits, alert, normal mood/affect ICD10 Worksheet Patient Problems: Problems Problem Status Onset Hypotension Acute Left hip pain Acute DM2 (diabetes mellitus, type 2) Acute HTN (hypertension) Acute SDH (subdural hematoma) Acute
[2017-01-23] MEDS: glipiZIDE 5 MG TAB PO SCH (18:07)
[2017-01-23] MEDS: ATORVASTATIN CALCIUM 10 MG TAB PO SCH (20:55)
[2017-01-24] MEDS: HEPARIN 5,000 UNIT/0.5 ML SYR SC SCH ×3 (05:38→21:51)
--- NOTE | 2017-01-24 07:55 | SOAPPROG ---
SOAP Progress Note Assessment/Plan: 61-year-old man who suffered a subdural hematoma and intraparenchymal hemorrhagic contusion of the frontal lobes, primarily the right frontal lobe, history most consistent with TBI. He was evaluated and treated at [facility] by the Neurosurgery service, non operatively. Serial head CTs ruled out any need for surgical intervention. * Debility status post subdural hemorrhage and intraparenchymal brain contusion primarily of the right frontal lobe, with impairments in mobility and self care . Initial FIM 61 on 01/21/17. Walked 120' FWW SBA. Needs extra time for motor planning for bed mobility. and cues to initiation and persist with activities. Hip pain is distracting. Continue physical and occupational therapy to optimize mobility and activities of daily living. * Cognitive impairment status post intracerebral hemorrhages. 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 Slow processing impacts communication, memory, problem solving and executive functioning. Continue Speech and Language Pathology. * Hypertension. Orthostatic by pulse 01/18/17. D/C minoxidil. Was dry on BMP . Received IV fluids 01/19/17 and was more alert . BP adequately controlled. * Lethargy. Nothing else neurologic indicating need for repeat head CT. Improved 01/20/17 after IV hydration. * Diabetes mellitus type 2. Continue metformin. Has used some insulin as PO intake improves. Start glipizide 2.5 mg PO BID 01/23/17. Continue to monitor. * L hip pain. Normal joint on XR; iliac enthesopathy is likely an incidental finding. Exam c/w possible trochanteric bursitis. Will schedule celecoxib. Continue APAP PRN. Modalities per PT. Consider MRI scan vs referral for bursa injection. Chronic/stable conditions: * Risk for seizures associated with intracerebral hemorrhage. Levetiracetam discontinued after 01/18/2017. Continue seizure precautions. * Hyponatremia. Resolved. Sodium was 130 on 01/16/17; 134 on 01/17/17. * Dense material seen in the sinuses on head CT and halitosis. Halitosis resolved. No S/Sx sinusitis. Lives with ; has local daughter. 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 Goal of independence for discharge home. Discharge date set for 02/04/17. Subjective: No events. No complaints this .am. Denies pain/ARRIAGA/SOB. Objective: Vital Signs Temp Pulse Resp BP Pulse Ox 36.8 C 71 16 121/73 H 98 01/24/17 05:48 01/24/17 05:48 01/24/17 05:48 01/24/17 05:48 01/24/17 05:48 Laboratory Results 01/17/17 05:30 01/17/17 05:30 01/23/17 01/24/17 01/25/17 05:59 05:59 05:59 Intake Total 1110 1430 Output Total 150 Balance 960 1430 - Pending Discharge Pending Discharge Within 24 Hours: No Pending Discharge Within 48 Hours: No Physical Exam - Physical Exam General Appearance: alert, no apparent distress Neck: supple Respiratory: lungs clear, normal breath sounds Cardiac/Chest: regular rate, rhythm Abdomen: normal bowel sounds, non-tender Skin: warm/dry Extremities: No pedal edema Neuro/Psych: alert, normal mood/affect, oriented x 3, cognition abnormalities, No speech abnormalities ICD10 Worksheet Patient Problems: Problems Problem Status Onset Hypotension Acute Left hip pain Acute DM2 (diabetes mellitus, type 2) Acute HTN (hypertension) Acute SDH (subdural hematoma) Acute
[2017-01-24] MEDS: glipiZIDE 5 MG TAB PO SCH ×2 (08:51→18:35)
[2017-01-24] MEDS: BENEFIBER/NUTRISOURCE FIBER PKT 1 EACH PO SCH ×2 (08:53→21:50)
[2017-01-24] MEDS: INSULIN LISPRO 100 UNIT/ML SC SCH ×3 (08:54→18:49)
[2017-01-24] MEDS: metFORMIN HCL 500 MG TAB PO SCH ×2 (08:54→18:35)
[2017-01-24] MEDS: FAMOTIDINE 20 MG TAB PO SCH ×2 (08:54→21:51)
[2017-01-24] MEDS: LISINOPRIL 40 MG TAB PO SCH (08:57)
[2017-01-24] MEDS: AQUAPHOR OINTMENT 3.5 OZ JAR TP SCH ×2 (15:52→21:52)
[2017-01-24] MEDS: ATORVASTATIN CALCIUM 10 MG TAB PO SCH (21:51)
[2017-01-25] MEDS: HEPARIN 5,000 UNIT/0.5 ML SYR SC SCH ×3 (05:50→21:34)
--- NOTE | 2017-01-25 07:38 | SOAPPROG ---
SOAP Progress Note Assessment/Plan: 61-year-old man who suffered a subdural hematoma and intraparenchymal hemorrhagic contusion of the frontal lobes, primarily the right frontal lobe, history most consistent with TBI. He was evaluated and treated at [facility] by the Neurosurgery service, non operatively. Serial head CTs ruled out any need for surgical intervention. * Debility status post subdural hemorrhage and intraparenchymal brain contusion primarily of the right frontal lobe, with impairments in mobility and self care . Initial FIM 61 on 01/21/17. Walked 120' FWW SBA. Needs extra time for motor planning for bed mobility. and cues to initiation and persist with activities. Hip pain is distracting. Continue physical and occupational therapy to optimize mobility and activities of daily living. * Cognitive impairment status post intracerebral hemorrhages. 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 Slow processing impacts communication, memory, problem solving and executive functioning. Continue Speech and Language Pathology. * Hypertension. Orthostatic by pulse 01/18/17. D/C minoxidil. Was dry on BMP . Received IV fluids 01/19/17 and was more alert . BP adequately controlled. * Lethargy. Nothing else neurologic indicating need for repeat head CT. Improved 01/20/17 after IV hydration. * Diabetes mellitus type 2. Continue metformin. Has used some insulin as PO intake improves. Start glipizide 2.5 mg PO BID 01/23/17. Continue to monitor. In target BS range past 48hrs * L hip pain. Normal joint on XR; iliac enthesopathy is likely an incidental finding. Exam c/w possible trochanteric bursitis. Will schedule celecoxib. Continue APAP PRN. Modalities per PT. Consider MRI scan vs referral for bursa injection. Chronic/stable conditions: * Risk for seizures associated with intracerebral hemorrhage. Levetiracetam discontinued after 01/18/2017. Continue seizure precautions. * Hyponatremia. Resolved. Sodium was 130 on 01/16/17; 134 on 01/17/17. * Dense material seen in the sinuses on head CT and halitosis. Halitosis resolved. No S/Sx sinusitis. Lives with ; has local daughter. 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 Goal of independence for discharge home. Discharge date set for 02/04/17. Subjective: No events, no complaints this a.m. Eager for d/c. No pain or SOB. Objective: Vital Signs Temp Pulse Resp BP Pulse Ox 37.0 C 85 16 120/70 97 01/25/17 06:15 01/25/17 06:15 01/25/17 06:15 01/25/17 06:15 01/25/17 06:15 Laboratory Results 01/17/17 05:30 01/17/17 05:30 01/24/17 01/25/17 01/26/17 05:59 05:59 05:59 Intake Total 1430 1196 Balance 1430 1196 Laboratory Tests 01/24/17 01/24/17 01/24/17 07:40 11:39 16:28 POC Glucose 112 H 111 H 105 H 01/24/17 21:15 POC Glucose 97 - Pending Discharge Pending Discharge Within 24 Hours: No Pending Discharge Within 48 Hours: No Physical Exam - Physical Exam General Appearance: alert, no apparent distress Neck: supple Respiratory: lungs clear, normal breath sounds Cardiac/Chest: regular rate, rhythm Abdomen: non-tender, soft Skin: warm/dry Neuro/Psych: alert, normal mood/affect, oriented x 3, cognition abnormalities, No speech abnormalities ICD10 Worksheet Patient Problems: Problems Problem Status Onset Hypotension Acute Left hip pain Acute DM2 (diabetes mellitus, type 2) Acute HTN (hypertension) Acute SDH (subdural hematoma) Acute
[2017-01-25] MEDS ORDERED: LIDOCAINE 5% 1 EA PATCH TD SCH (09:00)
[2017-01-25] MEDS: BENEFIBER/NUTRISOURCE FIBER PKT 1 EACH PO SCH ×2 (09:39→21:35)
[2017-01-25] MEDS: glipiZIDE 5 MG TAB PO SCH ×2 (09:40→16:39)
[2017-01-25] MEDS: metFORMIN HCL 500 MG TAB PO SCH ×2 (09:40→17:54)
[2017-01-25] MEDS: LISINOPRIL 40 MG TAB PO SCH (09:42)
[2017-01-25] MEDS: FAMOTIDINE 20 MG TAB PO SCH ×2 (09:42→21:34)
[2017-01-25] MEDS: INSULIN LISPRO 100 UNIT/ML SC SCH ×3 (09:43→17:23)
[2017-01-25] MEDS: LIDOCAINE 5% 1 EA PATCH TD SCH (09:44)
[2017-01-25] MEDS: AQUAPHOR OINTMENT 3.5 OZ JAR TP SCH ×2 (17:00→21:50)
[2017-01-25] MEDS: ATORVASTATIN CALCIUM 10 MG TAB PO SCH (21:34)
[2017-01-25] MEDS: PATCH REMOVAL 1 EA PATCH TD SCH (21:50)
[2017-01-26] MEDS: HEPARIN 5,000 UNIT/0.5 ML SYR SC SCH ×3 (06:05→20:41)
[2017-01-26] MEDS: glipiZIDE 5 MG TAB PO SCH ×2 (08:10→17:32)
[2017-01-26] MEDS: LIDOCAINE 5% 1 EA PATCH TD SCH (08:12)
[2017-01-26] MEDS: INSULIN LISPRO 100 UNIT/ML SC SCH ×3 (08:17→19:32)
[2017-01-26] MEDS: BENEFIBER/NUTRISOURCE FIBER PKT 1 EACH PO SCH ×2 (08:51→20:43)
[2017-01-26] MEDS: metFORMIN HCL 500 MG TAB PO SCH ×2 (08:52→17:33)
[2017-01-26] MEDS: FAMOTIDINE 20 MG TAB PO SCH ×2 (08:53→20:41)
[2017-01-26] MEDS: LISINOPRIL 40 MG TAB PO SCH (08:53)
[2017-01-26] MEDS: ACETAMINOPHEN 325 MG TAB PO PRN (11:17)
[2017-01-26] MEDS: AQUAPHOR OINTMENT 3.5 OZ JAR TP SCH ×2 (14:04→22:25)
--- NOTE | 2017-01-26 15:30 | SOAPPROG ---
SOAP Progress Note Assessment/Plan: 61-year-old man who suffered a subdural hematoma and intraparenchymal hemorrhagic contusion of the frontal lobes, primarily the right frontal lobe, history most consistent with TBI. He was evaluated and treated at [facility] by the Neurosurgery service, non operatively. Serial head CTs ruled out any need for surgical intervention. * Debility status post subdural hemorrhage and intraparenchymal brain contusion primarily of the right frontal lobe, with impairments in mobility and self care . Initial FIM 61 on 01/21/17. Walked 120' FWW SBA. Needs extra time for motor planning for bed mobility. and cues to initiation and persist with activities. Hip pain is distracting. Continue physical and occupational therapy to optimize mobility and activities of daily living. * Cognitive impairment status post intracerebral hemorrhages. 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 Slow processing impacts communication, memory, problem solving and executive functioning. Continue Speech and Language Pathology. * Hypertension. Orthostatic by pulse 01/18/17. D/C minoxidil. Was dry on BMP . Received IV fluids 01/19/17 and was more alert . BP adequately controlled. * Lethargy. Nothing else neurologic indicating need for repeat head CT. Improved 01/20/17 after IV hydration. * Diabetes mellitus type 2. Continue metformin. Has used some insulin as PO intake improves. Start glipizide 2.5 mg PO BID 01/23/17. Continue to monitor. In target BS range past 48hrs * L hip pain. Normal joint on XR; iliac enthesopathy is likely an incidental finding. Exam c/w possible trochanteric bursitis. Will schedule celecoxib. Continue APAP PRN. Modalities per PT. Consider MRI scan vs referral for bursa injection. Trial lido patch and acupuncture, doing better today Chronic/stable conditions: * Risk for seizures associated with intracerebral hemorrhage. Levetiracetam discontinued after 01/18/2017. Continue seizure precautions. * Hyponatremia. Resolved. Sodium was 130 on 01/16/17; 134 on 01/17/17. * Dense material seen in the sinuses on head CT and halitosis. Halitosis resolved. No S/Sx sinusitis. Lives with ; has local daughter. 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 Goal of independence for discharge home. Discharge date set for 02/04/17. 01/26/17 15:28 Subjective: No events. Hip/buttock pain improved today. Denies N/V/SOB. Objective: Vital Signs Temp Pulse Resp BP Pulse Ox 36.8 C 69 17 114/73 97 01/26/17 06:15 01/26/17 06:15 01/26/17 06:15 01/26/17 08:53 01/26/17 06:15 Laboratory Results 01/17/17 05:30 01/17/17 05:30 01/25/17 01/26/17 01/27/17 05:59 05:59 05:59 Intake Total 1196 724 716 Balance 1196 724 716 Laboratory Tests 01/25/17 01/25/17 01/25/17 11:34 16:26 21:16 POC Glucose 151 H 87 78 01/26/17 01/26/17 08:01 11:45 POC Glucose 79 98 - Pending Discharge Pending Discharge Within 24 Hours: No Pending Discharge Within 48 Hours: No Physical Exam - Physical Exam General Appearance: alert, no apparent distress Neck: supple Respiratory: lungs clear, normal breath sounds Cardiac/Chest: regular rate, rhythm Abdomen: normal bowel sounds, non-tender Skin: warm/dry Extremities: No pedal edema Neuro/Psych: alert, normal mood/affect, oriented x 3, cognition abnormalities (+ perseveration), No speech abnormalities ICD10 Worksheet Patient Problems: Problems Problem Status Onset Hypotension Acute Left hip pain Acute DM2 (diabetes mellitus, type 2) Acute HTN (hypertension) Acute SDH (subdural hematoma) Acute
[2017-01-26] MEDS: ATORVASTATIN CALCIUM 10 MG TAB PO SCH (20:41)
[2017-01-26] MEDS: PATCH REMOVAL 1 EA PATCH TD SCH (22:24)
[2017-01-27] MEDS: HEPARIN 5,000 UNIT/0.5 ML SYR SC SCH (05:42)
[2017-01-27] MEDS: LISINOPRIL 40 MG TAB PO SCH (08:54)
[2017-01-27] MEDS: BENEFIBER/NUTRISOURCE FIBER PKT 1 EACH PO SCH ×2 (08:54→21:30)
[2017-01-27] MEDS: metFORMIN HCL 500 MG TAB PO SCH ×2 (08:54→17:49)
[2017-01-27] MEDS: glipiZIDE 5 MG TAB PO SCH (08:56)
[2017-01-27] MEDS: FAMOTIDINE 20 MG TAB PO SCH ×2 (08:56→21:30)
[2017-01-27] MEDS: LIDOCAINE 5% 1 EA PATCH TD SCH (08:57)
[2017-01-27] MEDS: AQUAPHOR OINTMENT 3.5 OZ JAR TP SCH ×2 (08:58→22:22)
[2017-01-27] MEDS: INSULIN LISPRO 100 UNIT/ML SC SCH ×3 (10:05→17:51)
[2017-01-27] MEDS: ACETAMINOPHEN 325 MG TAB PO PRN (10:43)
--- NOTE | 2017-01-27 11:13 | SOAPPROG ---
SOAP Progress Note Assessment/Plan: Assessment: 61-year-old man who suffered a subdural hematoma and intraparenchymal hemorrhagic contusion of the frontal lobes, primarily the right frontal lobe, history most consistent with TBI. He was evaluated and treated at [facility] by the Neurosurgery service, non operatively. Serial head CTs ruled out any need for surgical intervention. * Debility status post subdural hemorrhage and intraparenchymal brain contusion primarily of the right frontal lobe, with impairments in mobility and self care . Initial FIM 61 on 01/21/17. Walked 120' FWW SBA. Needs extra time for motor planning for bed mobility. and cues to initiation and persist with activities. Hip pain is distracting. Continue physical and occupational therapy to optimize mobility and activities of daily living. * Cognitive impairment status post intracerebral hemorrhages. 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 Slow processing impacts communication, memory, problem solving and executive functioning. Continue Speech and Language Pathology. * Hypertension. Orthostatic by pulse 01/18/17. D/C minoxidil. Was dry on BMP . Received IV fluids 01/19/17 and was more alert . BP adequately controlled. * Lethargy. Nothing else neurologic indicating need for repeat head CT. Improved 01/20/17 after IV hydration. * Diabetes mellitus type 2. Continue metformin. Has used some insulin as PO intake improves. Started glipizide 2.5 mg PO BID 01/23/17; BS lower than necessary; reduce to 2.5 QD on 01/27/17. Continue to monitor. * L hip pain. Normal joint on XR; iliac enthesopathy is likely an incidental finding. Exam c/w possible trochanteric bursitis. Will schedule celecoxib. Continue APAP PRN. Modalities per PT. Improved. Chronic/stable conditions: * Risk for seizures associated with intracerebral hemorrhage. Levetiracetam discontinued after 01/18/2017. Continue seizure precautions. * Hyponatremia. Resolved. Sodium was 130 on 01/16/17; 134 on 01/17/17. * Dense material seen in the sinuses on head CT and halitosis. Halitosis resolved. No S/Sx sinusitis. * DVT prophylaxis. Ambulating > 300'. Will d/c subcu heparin. Lives with ; has local daughter. 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 Goal of independence for discharge home. Discharge date set for 02/04/17. 01/27/17 10:56 Subjective: Has a headache. Otherwise without complaint. Would like to go home. Reports normal appetite. Hip pain much better. Objective: Vital Signs Temp Pulse Resp BP Pulse Ox 36.7 C 73 16 114/68 97 01/27/17 06:21 01/27/17 06:21 01/27/17 06:21 01/27/17 08:55 01/27/17 06:21 Laboratory Results 01/17/17 05:30 01/17/17 05:30 01/26/17 01/27/17 01/28/17 05:59 05:59 05:59 Intake Total 724 1256 Balance 724 1256 Physical Exam - Physical Exam General Appearance: WD/WN, alert, no apparent distress, obese Respiratory: normal breath sounds, No crackles, No rhonchi, No wheezing Cardiac/Chest: regular rate, rhythm, No diastolic murmur, No systolic murmur Skin: normal color, warm/dry Neuro/Psych: no motor/sensory deficits, alert, normal mood/affect, oriented x 3 ICD10 Worksheet Patient Problems: Problems Problem Status Onset Hypotension Acute Left hip pain Acute DM2 (diabetes mellitus, type 2) Acute HTN (hypertension) Acute SDH (subdural hematoma) Acute
[2017-01-27] MEDS: PATCH REMOVAL 1 EA PATCH TD SCH (21:30)
[2017-01-27] MEDS: ATORVASTATIN CALCIUM 10 MG TAB PO SCH (21:30)
[2017-01-28] MEDS: ACETAMINOPHEN 325 MG TAB PO PRN (07:55)
[2017-01-28] MEDS: LISINOPRIL 40 MG TAB PO SCH (08:42)
[2017-01-28] MEDS: metFORMIN HCL 500 MG TAB PO SCH ×2 (08:43→18:30)
[2017-01-28] MEDS: glipiZIDE 5 MG TAB PO SCH (08:43)
[2017-01-28] MEDS: BENEFIBER/NUTRISOURCE FIBER PKT 1 EACH PO SCH ×2 (08:43→20:56)
[2017-01-28] MEDS: FAMOTIDINE 20 MG TAB PO SCH ×2 (08:43→20:57)
[2017-01-28] MEDS: LIDOCAINE 5% 1 EA PATCH TD SCH (08:44)
[2017-01-28] MEDS: INSULIN LISPRO 100 UNIT/ML SC SCH ×3 (08:44→17:42)
[2017-01-28] MEDS: AQUAPHOR OINTMENT 3.5 OZ JAR TP SCH ×2 (08:46→20:58)
--- NOTE | 2017-01-28 09:59 | SOAPPROG ---
SOAP Progress Note Assessment/Plan: Assessment: 61-year-old man who suffered a subdural hematoma and intraparenchymal hemorrhagic contusion of the frontal lobes, primarily the right frontal lobe, history most consistent with TBI. He was evaluated and treated at [facility] by the Neurosurgery service, non operatively. Serial head CTs ruled out any need for surgical intervention. * Debility status post subdural hemorrhage and intraparenchymal brain contusion primarily of the right frontal lobe, with impairments in mobility and self care . Initial FIM 61 on 01/21/17; gain to 88 as of 01/28/17. Walked 100' including outside SBA. 18 stairs 1 rail SBA. Does not need walker ut wants to use it. Cedeño balance 48/56, lo9w fall risk. Cues to initiation and persist with activities. Set-up/ distant S for ADLs. Continue physical and occupational therapy to optimize mobility and activities of daily living. * Cognitive impairment status post intracerebral hemorrhages. 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 Frontal lobe dysfunction with impaired recall, attn, response inhibition. Continue Speech and Language Pathology. * Hypertension. Orthostatic by pulse 01/18/17. D/C minoxidil. Was dry on BMP . Received IV fluids 01/19/17 and was more alert . BP adequately controlled. * Lethargy. Nothing else neurologic indicating need for repeat head CT. Improved 01/20/17 after IV hydration. * Diabetes mellitus type 2. Continue metformin. Has used some insulin as PO intake improves. Started glipizide 2.5 mg PO BID 01/23/17; BS lower than necessary; reduce to 2.5 QD on 01/27/17. Continue to monitor. * L hip pain. Normal joint on XR; iliac enthesopathy is likely an incidental finding. Exam c/w possible trochanteric bursitis. Will schedule celecoxib. Continue APAP PRN. Modalities per PT. Improved. Chronic/stable conditions: * Risk for seizures associated with intracerebral hemorrhage. Levetiracetam discontinued after 01/18/2017. Continue seizure precautions. * Hyponatremia. Resolved. Sodium was 130 on 01/16/17; 134 on 01/17/17. * Dense material seen in the sinuses on head CT and halitosis. Halitosis resolved. No S/Sx sinusitis. * DVT prophylaxis. Ambulating > 300'. Will d/c subcu heparin 01/28/17. Attended staffing, 15 minutes. D/W case mgmt, inspector quality assurance, nursing, PT, OT, AUTOPSY PATHOLOGIST. Attended family conference 30 minutes; , daughter and worker's comp block and case maker present. Lives with ; has local daughter. 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 Goal of independence for discharge home. Discharge date set for 02/04/17. Will continue outpatient AUTOPSY PATHOLOGIST. Follow-up neurosurgery Dr. Jimenez and worker's compensation physician. 01/28/17 11:48 Subjective: No complaints. ARRIAGA and hip pain this AM, improving with acetaminophen. No cough /dyspnea, f/c. Objective: Vital Signs Temp Pulse Resp BP Pulse Ox 36.5 C 75 18 119/72 99 01/28/17 08:52 01/28/17 08:52 01/28/17 08:52 01/28/17 08:52 01/28/17 08:52 Laboratory Results 01/17/17 05:30 01/17/17 05:30 01/27/17 01/28/17 01/29/17 05:59 05:59 05:59 Intake Total 1256 1380 Balance 1256 1380 - Time Spent With Patient Time Spent With Patient: Greater than 35 minutes floor time today, including more than 50% of time in coordination of care during staffing meeting, and counseling and jose ae rduring family meeting. Physical Exam - Physical Exam General Appearance: WD/WN, alert, no apparent distress Respiratory: No respiratory distress, No accessory muscle use Skin: normal color, warm/dry Neuro/Psych: no motor/sensory deficits, alert, normal mood/affect, oriented x 3 ICD10 Worksheet Patient Problems: Problems Problem Status Onset Hypotension Acute Left hip pain Acute DM2 (diabetes mellitus, type 2) Acute HTN (hypertension) Acute SDH (subdural hematoma) Acute
[2017-01-28] MEDS: ATORVASTATIN CALCIUM 10 MG TAB PO SCH (20:56)
[2017-01-28] MEDS: PATCH REMOVAL 1 EA PATCH TD SCH (20:57)
[2017-01-29] MEDS: INSULIN LISPRO 100 UNIT/ML SC SCH ×3 (08:27→17:35)
[2017-01-29] MEDS: glipiZIDE 5 MG TAB PO SCH (08:28)
[2017-01-29] MEDS: FAMOTIDINE 20 MG TAB PO SCH ×2 (08:28→21:54)
[2017-01-29] MEDS: metFORMIN HCL 500 MG TAB PO SCH ×2 (08:28→17:33)
[2017-01-29] MEDS: BENEFIBER/NUTRISOURCE FIBER PKT 1 EACH PO SCH ×2 (08:28→21:54)
[2017-01-29] MEDS: LISINOPRIL 40 MG TAB PO SCH (08:30)
[2017-01-29] MEDS: AQUAPHOR OINTMENT 3.5 OZ JAR TP SCH ×2 (08:33→21:57)
[2017-01-29] MEDS: LIDOCAINE 5% 1 EA PATCH TD SCH (08:34)
--- NOTE | 2017-01-29 10:12 | SOAPPROG ---
SOAP Progress Note Assessment/Plan: Assessment: 61-year-old man who suffered a subdural hematoma and intraparenchymal hemorrhagic contusion of the frontal lobes, primarily the right frontal lobe, history most consistent with TBI. He was evaluated and treated at [facility] by the Neurosurgery service, non operatively. Serial head CTs ruled out any need for surgical intervention. 01/29/2017- Doing well with therapies, neurologically improving, pain not inhibiting his function. Continue to monitor neurological recovery and continue rehabilitation plan below. * Debility status post subdural hemorrhage and intraparenchymal brain contusion primarily of the right frontal lobe, with impairments in mobility and self care . Initial FIM 61 on 01/21/17; gain to 88 as of 01/28/17. Walked 100' including outside SBA. 18 stairs 1 rail SBA. Does not need walker ut wants to use it. Cedeño balance 48/56, lo9w fall risk. Cues to initiation and persist with activities. Set-up/ distant S for ADLs. Continue physical and occupational therapy to optimize mobility and activities of daily living. * Cognitive impairment status post intracerebral hemorrhages. 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 Frontal lobe dysfunction with impaired recall, attn, response inhibition. Continue Speech and Language Pathology. * Hypertension. Orthostatic by pulse 01/18/17. D/C minoxidil. Was dry on BMP . Received IV fluids 01/19/17 and was more alert . BP adequately controlled. * Lethargy. Nothing else neurologic indicating need for repeat head CT. Improved 01/20/17 after IV hydration. * Diabetes mellitus type 2. Continue metformin. Has used some insulin as PO intake improves. Started glipizide 2.5 mg PO BID 01/23/17; BS lower than necessary; reduce to 2.5 QD on 01/27/17. Continue to monitor. * L hip pain. Normal joint on XR; iliac enthesopathy is likely an incidental finding. Exam c/w possible trochanteric bursitis. Will schedule celecoxib. Continue APAP PRN. Modalities per PT. Improved. Chronic/stable conditions: * Risk for seizures associated with intracerebral hemorrhage. Levetiracetam discontinued after 01/18/2017. Continue seizure precautions. * Hyponatremia. Resolved. Sodium was 130 on 01/16/17; 134 on 01/17/17. * Dense material seen in the sinuses on head CT and halitosis. Halitosis resolved. No S/Sx sinusitis. * DVT prophylaxis. Ambulating > 300'. d/c subcu heparin 01/28/17. Lives with ; has local daughter. 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 Goal of independence for discharge home. Discharge date set for 02/04/17. Will continue outpatient MAILING MACHINE ASSISTANT. Follow-up neurosurgery Dr. Jimenez and worker's compensation physician. 01/29/17 10:08 Subjective: CC: neurological stability No acute events overnight. Patient ambulating with therapy today in the hallway. Overall, doing well with therapies, hip pain is not been impairing his function. Denies any headache, chest pain, shortness of breath, new numbness, tingling, or weakness. Objective: Vital Signs Temp Pulse Resp BP Pulse Ox 36.8 C 66 16 120/80 95 01/29/17 06:45 01/29/17 06:45 01/29/17 06:45 01/29/17 08:30 01/29/17 06:45 Laboratory Results 01/17/17 05:30 01/17/17 05:30 01/28/17 01/29/17 01/30/17 05:59 05:59 05:59 Intake Total 1380 792 360 Output Total 2 Balance 1380 790 360 Physical Exam - Physical Exam General Appearance: WD/WN, alert, no apparent distress Respiratory: No respiratory distress, No accessory muscle use Cardiac/Chest: No edema Skin: normal color, warm/dry, No cyanosis Extremities: No pedal edema, No swelling Neuro/Psych: alert, normal mood/affect, oriented x 3 ICD10 Worksheet Patient Problems: Problems Problem Status Onset Hypotension Acute Left hip pain Acute DM2 (diabetes mellitus, type 2) Acute HTN (hypertension) Acute SDH (subdural hematoma) Acute - ICD10 Problem Qualifiers (1) Left hip pain (2) Hypotension Qualifiers: Hypotension type: orthostatic hypotension Trimester: T Qualified Code(s) : I95.1 - Orthostatic hypotension
[2017-01-29] MEDS: PATCH REMOVAL 1 EA PATCH TD SCH (21:00)
[2017-01-29] MEDS: ATORVASTATIN CALCIUM 10 MG TAB PO SCH (21:54)
[2017-01-30] MEDS: BENEFIBER/NUTRISOURCE FIBER PKT 1 EACH PO SCH ×2 (09:00→20:59)
[2017-01-30] MEDS: glipiZIDE 5 MG TAB PO SCH (09:39)
[2017-01-30] MEDS: INSULIN LISPRO 100 UNIT/ML SC SCH ×3 (09:40→18:18)
[2017-01-30] MEDS: LISINOPRIL 40 MG TAB PO SCH (09:40)
[2017-01-30] MEDS: FAMOTIDINE 20 MG TAB PO SCH ×2 (09:40→20:59)
[2017-01-30] MEDS: metFORMIN HCL 500 MG TAB PO SCH ×2 (09:40→18:11)
[2017-01-30] MEDS: ACETAMINOPHEN 325 MG TAB PO PRN (09:41)
[2017-01-30] MEDS: LIDOCAINE 5% 1 EA PATCH TD SCH (09:43)
[2017-01-30] MEDS: AQUAPHOR OINTMENT 3.5 OZ JAR TP SCH ×2 (09:44→22:10)
--- NOTE | 2017-01-30 12:54 | SOAPPROG ---
SOAP Progress Note Assessment/Plan: Assessment: 61-year-old man who suffered a subdural hematoma and intraparenchymal hemorrhagic contusion of the frontal lobes, primarily the right frontal lobe, history most consistent with TBI. He was evaluated and treated at [facility] by the Neurosurgery service, non operatively. Serial head CTs ruled out any need for surgical intervention. * Debility status post subdural hemorrhage and intraparenchymal brain contusion primarily of the right frontal lobe, with impairments in mobility and self care . Initial FIM 61 on 01/21/17; gain to 88 as of 01/28/17. Walked 100' including outside SBA. 18 stairs 1 rail SBA. Does not need walker but wants to use it. Cedeño balance 48/56, low fall risk. Cues to initiation and persist with activities. Set-up/ distant S for ADLs. Continue physical and occupational therapy to optimize mobility and activities of daily living. * Cognitive impairment status post intracerebral hemorrhages. 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 Frontal lobe dysfunction with impaired recall, attn, response inhibition. Continue Speech and Language Pathology. * Hypertension. Orthostatic by pulse 01/18/17. D/C minoxidil. Was dry on BMP . Received IV fluids 01/19/17 and was more alert . BP adequately controlled. * Lethargy. Nothing else neurologic indicating need for repeat head CT. Improved 01/20/17 after IV hydration. * Diabetes mellitus type 2. Continue metformin. Has used some insulin as PO intake improves. Started glipizide 2.5 mg PO BID 01/23/17; BS lower than necessary; reduce to 2.5 QD on 01/27/17. Continue to monitor. * L hip pain. Normal joint on XR; iliac enthesopathy is likely an incidental finding. Exam c/w possible trochanteric bursitis. Will schedule celecoxib. Continue APAP PRN. Modalities per PT. Improved. Chronic/stable conditions: * Risk for seizures associated with intracerebral hemorrhage. Levetiracetam discontinued after 01/18/2017. Continue seizure precautions. * Hyponatremia. Resolved. Sodium was 130 on 01/16/17; 134 on 01/17/17. * Dense material seen in the sinuses on head CT and halitosis. Halitosis resolved. No S/Sx sinusitis. * DVT prophylaxis. Ambulating > 300'. Will d/c subcu heparin 01/28/17. Lives with ; has local daughter. 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 Goal of independence for discharge home. Discharge date set for 02/04/17. Will continue outpatient PAPER CUP HANDLE MACHINE OPERATOR. Follow-up neurosurgery Dr. Jimenez and worker's compensation physician. 01/30/17 12:52 Subjective: No complaints. Denies f/c, cough/dyspnea. ARRIAGA in 09/09; hip pain 10/10. Objective: Vital Signs Temp Pulse Resp BP Pulse Ox 36.8 C 71 16 103/64 98 01/30/17 06:53 01/30/17 06:53 01/30/17 06:53 01/30/17 06:53 01/30/17 06:53 Laboratory Results 01/17/17 05:30 01/17/17 05:30 01/29/17 01/30/17 01/31/17 05:59 05:59 05:59 Intake Total 792 1020 200 Output Total 2 Balance 790 1020 200 Physical Exam - Physical Exam General Appearance: WD/WN, alert, no apparent distress Respiratory: No respiratory distress, No accessory muscle use Skin: normal color, warm/dry Neuro/Psych: no motor/sensory deficits, alert, normal mood/affect ICD10 Worksheet Patient Problems: Problems Problem Status Onset Hypotension Acute Left hip pain Acute DM2 (diabetes mellitus, type 2) Acute HTN (hypertension) Acute SDH (subdural hematoma) Acute
[2017-01-30] MEDS: PATCH REMOVAL 1 EA PATCH TD SCH (20:56)
[2017-01-30] MEDS: ATORVASTATIN CALCIUM 10 MG TAB PO SCH (20:59)
[2017-01-31] MEDS: glipiZIDE 5 MG TAB PO SCH (09:14)
[2017-01-31] MEDS: LIDOCAINE 5% 1 EA PATCH TD SCH (09:14)
[2017-01-31] MEDS: BENEFIBER/NUTRISOURCE FIBER PKT 1 EACH PO SCH ×2 (09:14→21:20)
[2017-01-31] MEDS: FAMOTIDINE 20 MG TAB PO SCH ×2 (09:14→21:20)
[2017-01-31] MEDS: INSULIN LISPRO 100 UNIT/ML SC SCH ×3 (09:15→18:06)
[2017-01-31] MEDS: LISINOPRIL 40 MG TAB PO SCH (09:15)
[2017-01-31] MEDS: metFORMIN HCL 500 MG TAB PO SCH ×2 (09:15→18:06)
[2017-01-31] MEDS: AQUAPHOR OINTMENT 3.5 OZ JAR TP SCH ×2 (09:18→21:57)
--- NOTE | 2017-01-31 10:44 | SOAPPROG ---
SOAP Progress Note Assessment/Plan: Assessment: 61-year-old man who suffered a subdural hematoma and intraparenchymal hemorrhagic contusion of the frontal lobes, primarily the right frontal lobe, history most consistent with TBI. He was evaluated and treated at [facility] by the Neurosurgery service, non operatively. Serial head CTs ruled out any need for surgical intervention. * Debility status post subdural hemorrhage and intraparenchymal brain contusion primarily of the right frontal lobe, with impairments in mobility and self care . Initial FIM 61 on 01/21/17; gain to 88 as of 01/28/17. Walked 100' including outside SBA. 18 stairs 1 rail SBA. Does not need walker but wants to use it. Cedeño balance 48/56, low fall risk. Cues to initiation and persist with activities. Set-up/ distant S for ADLs. Continue physical and occupational therapy to optimize mobility and activities of daily living. * Cognitive impairment status post intracerebral hemorrhages. 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 Frontal lobe dysfunction with impaired recall, attn, response inhibition. Continue Speech and Language Pathology. * Hypertension. BP THIS AM 118/71. Orthostatic by pulse 01/18/17. D/C minoxidil. Was dry on BMP 01/17/17. Received IV fluids 01/19/17 and was more alert /. BP adequately controlled. * Lethargy. Nothing else neurologic indicating need for repeat head CT. Improved 01/20/17 after IV hydration. * Diabetes mellitus type 2. AM BLOOD SUGAR 79. NO CHANGES TO GLIPIZIDE THIS AM. Continue metformin. Has used some insulin as PO intake improves. Started glipizide 2.5 mg PO BID 01/23/17; BS lower than necessary; reduce to 2.5 QD on . Continue to monitor. * L hip pain. NO C/O HIP PAIN THIS AM. Normal joint on XR; iliac enthesopathy is likely an incidental finding. Exam c/w possible trochanteric bursitis. Will schedule celecoxib. Continue APAP PRN. Modalities per PT. Improved. Chronic/stable conditions: * Risk for seizures associated with intracerebral hemorrhage. Levetiracetam discontinued after 01/18/2017. Continue seizure precautions. * Hyponatremia. Resolved. Sodium was 130 on 01/16/17; 134 on 01/17/17. * Dense material seen in the sinuses on head CT and halitosis. Halitosis resolved. No S/Sx sinusitis. * DVT prophylaxis. Ambulating > 300'. Will d/c subcu heparin 01/28/17. Plan: 01/31/17 10:45 Subjective: No complaints per patient or nursing staff. Objective: Vital Signs Temp Pulse Resp BP Pulse Ox 36.6 C 68 12 118/71 99 01/31/17 07:21 01/31/17 07:21 01/31/17 07:21 01/31/17 09:15 01/31/17 07:21 Laboratory Results 01/17/17 05:30 01/17/17 05:30 01/30/17 01/31/17 02/01/17 05:59 05:59 05:59 Intake Total 1020 840 250 Balance 1020 840 250 Physical Exam - Physical Exam General Appearance: WD/WN, alert, no apparent distress Respiratory: lungs clear, normal breath sounds, No crackles, No wheezing Cardiac/Chest: No edema, No JVD Abdomen: normal bowel sounds, non-tender, soft Skin: warm/dry Extremities: normal range of motion, No swelling, No Valeria's sign Neuro/Psych: normal mood/affect, oriented x 3, other (No obvious UE OR LE motor deficits) ICD10 Worksheet Patient Problems: Problems Problem Status Onset Hypotension Acute Left hip pain Acute DM2 (diabetes mellitus, type 2) Acute HTN (hypertension) Acute SDH (subdural hematoma) Acute
[2017-01-31] MEDS: ATORVASTATIN CALCIUM 10 MG TAB PO SCH (21:20)
[2017-01-31] MEDS: PATCH REMOVAL 1 EA PATCH TD SCH (21:57)
[2017-02-01] MEDS: glipiZIDE 5 MG TAB PO SCH (08:00)
--- NOTE | 2017-02-01 08:33 | SOAPPROG ---
SOAP Progress Note Assessment/Plan: Assessment: 61-year-old man who suffered a subdural hematoma and intraparenchymal hemorrhagic contusion of the frontal lobes, primarily the right frontal lobe, history most consistent with TBI. He was evaluated and treated at [facility] by the Neurosurgery service, non operatively. Serial head CTs ruled out any need for surgical intervention. * Debility status post subdural hemorrhage and intraparenchymal brain contusion primarily of the right frontal lobe, with impairments in mobility and self care . Initial FIM 61 on 01/21/17; gain to 88 as of 01/28/17. Walked 100' including outside SBA. 18 stairs 1 rail SBA. Does not need walker but wants to use it. Cedeño balance 48/56, low fall risk. Cues to initiation and persist with activities. Set-up/ distant S for ADLs. Continue physical and occupational therapy to optimize mobility and activities of daily living. * Cognitive impairment status post intracerebral hemorrhages. 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 Frontal lobe dysfunction with impaired recall, attn, response inhibition. Continue Speech and Language Pathology. * Hypertension. BP adequately controlled. * Diabetes mellitus type 2 NO CHANGES TO GLIPIZIDE THIS AM. Continue metformin. Has used some insulin as PO intake improves. Started glipizide 2.5 mg PO BID 01/23/17; BS lower than necessary; reduce to 2.5 QD on 01/27/17. Continue to monitor. * L hip pain. NO C/O HIP PAIN THIS AM. Normal joint on XR; iliac enthesopathy is likely an incidental finding. Exam c/w possible trochanteric bursitis. Will schedule celecoxib. Continue APAP PRN. Modalities per PT. Improved. Chronic/stable conditions: * Risk for seizures associated with intracerebral hemorrhage. Levetiracetam discontinued after 01/18/2017. Continue seizure precautions. * Hyponatremia. Resolved. Sodium was 130 on 01/16/17; 134 on 01/17/17. * Dense material seen in the sinuses on head CT and halitosis. Halitosis resolved. No S/Sx sinusitis. * DVT prophylaxis. Ambulating > 300'. Will d/c subcu heparin 01/28/17. Plan: 01/31/17 10:45 02/01/17 08:31 Subjective: No complaints this am Reports current pain level is 1/10 Objective: Vital Signs Temp Pulse Resp BP Pulse Ox 36.8 C 66 16 110/68 98 02/01/17 06:43 02/01/17 06:43 02/01/17 06:43 02/01/17 06:43 02/01/17 06:43 Laboratory Results 01/17/17 05:30 01/17/17 05:30 01/31/17 02/01/17 02/02/17 05:59 05:59 05:59 Intake Total 840 1150 Balance 840 1150 Physical Exam - Physical Exam General Appearance: WD/WN, alert, no apparent distress Respiratory: lungs clear, normal breath sounds Cardiac/Chest: No edema Abdomen: normal bowel sounds, non-tender, soft Skin: warm/dry Neuro/Psych: other (UE,LE motor exam- strength is WFLs), No facial droop ICD10 Worksheet Patient Problems: Problems Problem Status Onset Hypotension Acute Left hip pain Acute DM2 (diabetes mellitus, type 2) Acute HTN (hypertension) Acute SDH (subdural hematoma) Acute
[2017-02-01] MEDS: FAMOTIDINE 20 MG TAB PO SCH ×2 (09:47→20:38)
[2017-02-01] MEDS: INSULIN LISPRO 100 UNIT/ML SC SCH ×3 (09:48→18:08)
[2017-02-01] MEDS: metFORMIN HCL 500 MG TAB PO SCH ×2 (09:48→18:06)
[2017-02-01] MEDS: LISINOPRIL 40 MG TAB PO SCH (09:49)
[2017-02-01] MEDS: BENEFIBER/NUTRISOURCE FIBER PKT 1 EACH PO SCH ×2 (09:49→20:38)
[2017-02-01] MEDS: AQUAPHOR OINTMENT 3.5 OZ JAR TP SCH (09:49)
[2017-02-01] MEDS: ATORVASTATIN CALCIUM 10 MG TAB PO SCH (20:38)
[2017-02-02] MEDS: PATCH REMOVAL 1 EA PATCH TD SCH ×2 (05:04→21:00)
[2017-02-02] MEDS: AQUAPHOR OINTMENT 3.5 OZ JAR TP SCH ×3 (05:05→21:15)
[2017-02-02] MEDS: glipiZIDE 5 MG TAB PO SCH (11:18)
[2017-02-02] MEDS: FAMOTIDINE 20 MG TAB PO SCH ×2 (11:18→20:59)
[2017-02-02] MEDS: BENEFIBER/NUTRISOURCE FIBER PKT 1 EACH PO SCH ×2 (11:18→20:59)
[2017-02-02] MEDS: LIDOCAINE 5% 1 EA PATCH TD SCH (11:19)
[2017-02-02] MEDS: LISINOPRIL 40 MG TAB PO SCH (11:19)
[2017-02-02] MEDS: INSULIN LISPRO 100 UNIT/ML SC SCH ×3 (11:19→18:11)
[2017-02-02] MEDS: metFORMIN HCL 500 MG TAB PO SCH ×2 (11:19→17:43)
--- NOTE | 2017-02-02 14:32 | SOAPPROG ---
SOAP Progress Note Assessment/Plan: Assessment: 61-year-old man who suffered a subdural hematoma and intraparenchymal hemorrhagic contusion of the frontal lobes, primarily the right frontal lobe, history most consistent with TBI. He was evaluated and treated at [facility] by the Neurosurgery service, non operatively. Serial head CTs ruled out any need for surgical intervention. * Debility status post subdural hemorrhage and intraparenchymal brain contusion primarily of the right frontal lobe, with impairments in mobility and self care . Initial FIM 61 on 01/21/17; gain to 88 as of 01/28/17. Walked 100' including outside SBA. 18 stairs 1 rail SBA. Does not need walker but wants to use it. Cedeño balance 48/56, low fall risk. Cues to initiation and persist with activities. Set-up/ distant S for ADLs. Continue physical and occupational therapy to optimize mobility and activities of daily living. * Cognitive impairment status post intracerebral hemorrhages. 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 Frontal lobe dysfunction with impaired recall, attn, response inhibition. Continue Speech and Language Pathology. * Hypertension. Orthostatic by pulse 01/18/17. D/C minoxidil. Was dry on BMP . Received IV fluids 01/19/17 and was more alert . BP adequately controlled. * Lethargy. Nothing else neurologic indicating need for repeat head CT. Improved 01/20/17 after IV hydration. * Diabetes mellitus type 2. Continue metformin. Has used some insulin as PO intake improves. Low BS with glipized 2.5 mg BID and when decreased to QD. D/ C glipizide starting 02/03/17. Continue to monitor. * L hip pain. Normal joint on XR; iliac enthesopathy is likely an incidental finding. Exam c/w possible trochanteric bursitis. Will schedule celecoxib. Continue APAP PRN. Modalities per PT. Improved. Chronic/stable conditions: * Risk for seizures associated with intracerebral hemorrhage. Levetiracetam discontinued after 01/18/2017. Continue seizure precautions. * Hyponatremia. Resolved. Sodium was 130 on 01/16/17; 134 on 01/17/17. * Dense material seen in the sinuses on head CT and halitosis. Halitosis resolved. No S/Sx sinusitis. * DVT prophylaxis. Ambulating > 300'. Will d/c subcu heparin 01/28/17. Lives with ; has local daughter. 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 Goal of independence for discharge home. Discharge date set for 02/04/17. Will continue outpatient [employer]. Follow-up neurosurgery Dr. Jimenez and worker's compensation physician. Outpatient PT and [employer]. 02/02/17 14:30 Subjective: No complaints. Feeling better. Says he's more active and walking more and prefers to not take glipizide due to low BS. Objective: Vital Signs Temp Pulse Resp BP Pulse Ox 36.8 C 66 16 119/68 98 02/02/17 08:00 02/02/17 08:00 02/02/17 08:00 02/02/17 11:19 02/02/17 08:00 Laboratory Results 01/17/17 05:30 01/17/17 05:30 02/01/17 02/02/17 02/03/17 05:59 05:59 05:59 Intake Total 1150 1190 400 Balance 1150 1190 400 Physical Exam - Physical Exam General Appearance: WD/WN, alert, no apparent distress Respiratory: No respiratory distress, No accessory muscle use Skin: normal color, warm/dry Neuro/Psych: no motor/sensory deficits, alert, normal mood/affect, oriented x 3 ICD10 Worksheet Patient Problems: Problems Problem Status Onset Hypotension Acute Left hip pain Acute DM2 (diabetes mellitus, type 2) Acute HTN (hypertension) Acute SDH (subdural hematoma) Acute
[2017-02-02] MEDS: ATORVASTATIN CALCIUM 10 MG TAB PO SCH (20:59)
[2017-02-03 06:52] VITALS: RESP 16
[2017-02-03] MEDS: BENEFIBER/NUTRISOURCE FIBER PKT 1 EACH PO SCH ×2 (08:49→21:10)
[2017-02-03] MEDS: FAMOTIDINE 20 MG TAB PO SCH ×2 (08:50→21:10)
[2017-02-03] MEDS: INSULIN LISPRO 100 UNIT/ML SC SCH ×3 (08:51→19:22)
[2017-02-03] MEDS: metFORMIN HCL 500 MG TAB PO SCH ×2 (08:52→17:40)
[2017-02-03] MEDS: LISINOPRIL 40 MG TAB PO SCH (08:52)
[2017-02-03] MEDS: AQUAPHOR OINTMENT 3.5 OZ JAR TP SCH ×2 (08:52→22:19)
[2017-02-03] MEDS: LIDOCAINE 5% 1 EA PATCH TD SCH (08:52)
[2017-02-03] MEDS ORDERED: LISINOPRIL 40 MG TAB PO SCH (09:57)
--- NOTE | 2017-02-03 11:14 | SOAPPROG ---
SOAP Progress Note Assessment/Plan: Assessment: 61-year-old man who suffered a subdural hematoma and intraparenchymal hemorrhagic contusion of the frontal lobes, primarily the right frontal lobe, history most consistent with TBI. He was evaluated and treated at [facility] by the Neurosurgery service, non operatively. Serial head CTs ruled out any need for surgical intervention. * Debility status post subdural hemorrhage and intraparenchymal brain contusion primarily of the right frontal lobe, with impairments in mobility and self care . Initial FIM 61 on 01/21/17; gain to 88 as of 01/28/17. Walked 100' including outside SBA. 18 stairs 1 rail SBA. Does not need walker but wants to use it. Cedeño balance 48/56, low fall risk. Cues to initiation and persist with activities. Set-up/ distant S for ADLs. Continue physical and occupational therapy to optimize mobility and activities of daily living. * Cognitive impairment status post intracerebral hemorrhages. 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 Frontal lobe dysfunction with impaired recall, attn, response inhibition. Continue Speech and Language Pathology. * Hypertension. Orthostatic by pulse 01/18/17. D/C minoxidil. Was dry on BMP . Received IV fluids 01/19/17 and was more alert . BP lower than necessary. Lower lisinopril from 40 mg to 20 mg QD startign 02/04/17. * Lethargy. Nothing else neurologic indicating need for repeat head CT. Improved 01/20/17 after IV hydration. * Diabetes mellitus type 2. Continue metformin. Has used some insulin as PO intake improves. Low BS with glipizide 2.5 mg BID and when decreased to QD. D/ C glipizide starting 02/03/17. Continue to monitor. * L hip pain. Normal joint on XR; iliac enthesopathy is likely an incidental finding. Exam c/w possible trochanteric bursitis. Will schedule celecoxib. Continue APAP PRN. Modalities per PT. Improved; change celecoxib to PRN. Chronic/stable conditions: * Risk for seizures associated with intracerebral hemorrhage. Levetiracetam discontinued after 01/18/2017. Continue seizure precautions. * Hyponatremia. Resolved. Sodium was 130 on 01/16/17; 134 on 01/17/17. * Dense material seen in the sinuses on head CT and halitosis. Halitosis resolved. No S/Sx sinusitis. * DVT prophylaxis. Ambulating > 300'. Will d/c subcu heparin 01/28/17. Lives with ; has local daughter. 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 Goal of independence for discharge home. Discharge date set for 02/04/17. Will continue outpatient [employer]. Follow-up neurosurgery Dr. Jimenez and worker's compensation physician. Outpatient PT and [employer]. 02/03/17 11:06 Subjective: No complaints. Walked outside today and yesterday. Was ableto dress independently this morning. Denies pain. Objective: Vital Signs Temp Pulse Resp BP Pulse Ox 36.6 C 62 16 94/61 L 98 02/03/17 06:51 02/03/17 06:51 02/03/17 06:51 02/03/17 08:52 02/03/17 06:51 Laboratory Results 01/17/17 05:30 01/17/17 05:30 02/02/17 02/03/17 02/04/17 05:59 05:59 05:59 Intake Total 1190 800 360 Balance 1190 800 360 Physical Exam - Physical Exam General Appearance: WD/WN, alert, no apparent distress Respiratory: normal breath sounds, No crackles, No rhonchi, No wheezing Cardiac/Chest: regular rate, rhythm, No edema Skin: normal color, warm/dry Neuro/Psych: no motor/sensory deficits, alert, normal mood/affect, oriented x 3 , No abnormal gait ICD10 Worksheet Patient Problems: Problems Problem Status Onset Hypotension Acute Left hip pain Acute DM2 (diabetes mellitus, type 2) Acute HTN (hypertension) Acute SDH (subdural hematoma) Acute
[2017-02-03 18:49] VITALS: TEMP 98.5
[2017-02-03] MEDS: ATORVASTATIN CALCIUM 10 MG TAB PO SCH (21:09)
[2017-02-03] MEDS: PATCH REMOVAL 1 EA PATCH TD SCH (22:20)
[2017-02-04 06:21] VITALS: PULSE 62; O2SAT 96
[2017-02-04] MEDS: FAMOTIDINE 20 MG TAB PO SCH (09:40)
[2017-02-04] MEDS: metFORMIN HCL 500 MG TAB PO SCH (09:40)
[2017-02-04 09:42] VITALS: BP 120/60
[2017-02-04] MEDS: BENEFIBER/NUTRISOURCE FIBER PKT 1 EACH PO SCH (09:44)
[2017-02-04] MEDS: LIDOCAINE 5% 1 EA PATCH TD SCH (09:44)
[2017-02-04] MEDS: AQUAPHOR OINTMENT 3.5 OZ JAR TP SCH (09:45)
[2017-02-04] MEDS: INSULIN LISPRO 100 UNIT/ML SC SCH ×2 (09:45→13:33)
--- NOTE | 2017-02-04 20:37 | GDS ---
[f rep st] DISCHARGE SUMMARY ADMISSION DIAGNOSIS: Subarachnoid hemorrhage, likely due to traumatic brain injury. PRINCIPAL DISCHARGE DIAGNOSIS: Subarachnoid hemorrhage, likely due to traumatic brain injury. OTHER DISCHARGE DIAGNOSES: 1. Diabetes mellitus, type 2. 2. Hypertension. CONSULTATIONS: None. PROCEDURES: None. COMPLICATIONS: None. HISTORY/HOSPITAL COURSE: The patient was admitted from [facility]. He had presented there on 01/09/2017. 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 He was brought to [facility] where head CT showed a small right-sided subdural hematoma with associated subarachnoid hemorrhage and parenchymal bleeding at the base of the frontal lobe. There was a right frontal contusion, approximately 19 mm. There was no midline shift. He had serial head CTs, and there was no indication for surgery, so he was transferred to inpatient rehabilitation. When he first arrived, he had markedly slow processing and poor initiation, as well as difficulties with balance and with activities of daily living. His initial functional independence measure was 61 on 01/21/2017. This is consistent with needing assistance in all activities of daily living and with mobility at the [facility] level. By 01/28/2017, his functional independence measure had improved to 88 which is consistent with assisted living facility level of function. He had walked 100 feet including outside with only standby assistance. He had climbed 18 stairs with 1 rail with standby assistance. A Cedeño balance inventory was done, and he scored 48/56, which is low fall risk. He continued to need some cues for initiation and persistence with activities. Regarding cognitive impairment, he was noted to emerge from post traumatic amnesia. He had impaired recall, attention, and response inhibition, consistent with frontal lobe dysfunction. He improved in these functions, but it was noted that without cuing his verbal output reflected incomplete messages , incomplete in conveyance. He lacks specificity, and he would transition to other topics without returning to the original point. He had a very high blood pressure when he arrived at [facility]. He was transferred to inpatient rehabilitation with minoxidil. He was orthostatic and somewhat dehydrated. Minoxidil was discontinued, and he needed IV fluids on 01/19/2017. Following these changes, he had improved alertness. His blood pressure continued to be lower than necessary, and his lisinopril dose was decreased from 40 to 20 mg per day, starting on the day of discharge ( 02/04/2017). Regarding diabetes mellitus, type 2, he was continued on metformin. He used occasional insulin, especially as his oral intake improved. He was tried on glipizide first at 2.5 mg b.i.d., but he had some low blood sugars. It was decreased to daily. He continued to have some low blood sugars, and glipizide was discontinued on 02/03/2017. He had left hip pain. This interfered with his ability to do therapy. He had an x-ray which showed a normal joint but iliac enthesopathy. His exam was consistent with possible trochanteric bursitis. He was placed on scheduled celecoxib, and between this medication and stretches that he would do early in the day, his hip pain improved considerably, and he was able to participate fully in therapies. He arrived on inpatient rehabilitation with 2 more days of levetiracetam, which had been started at the hospital. It was discontinued after 01/18/2017 and he had no seizure activity. He had hyponatremia with a sodium of 130 when he arrived. The next day, his sodium had improved to 134. LABORATORY AND STUDIES: During his stay, CBC was overall within normal limits but for a low MCV at 81.1. He had an elevated D-dimer of 1.5, but there were no other signs or symptoms consistent with deep venous thrombosis or pulmonary embolus, and this evaluation was not pursued further. CONDITION UPON DISCHARGE: Good. ACTIVITY: Ad kendra, but he will benefit from supervision with important activities, such as medication management and financial services specialist. DIET: Regular. DATE OF NEXT APPOINTMENT: He will follow up with his primary care provider, Dr. Jesus Neal, in 1-2 weeks. He has appointments with neurosurgeon, Dr. Rohini Jimenez, on 02/06/2017 at 10:[address] Sharon Villalba, worker's compensation physician, on 02/09/2017 at 10:30 a.m. MEDICATIONS AT DISCHARGE: 1. Acetaminophen 650 mg p.o. q.4 hours p.r.n. 2. Amlodipine 5 mg p.o. daily. 3. Celecoxib 100 mg p.o. twice daily p.r.n. 4. Benefiber 1 p.o. b.i.d.. 5. Lisinopril 20 mg p.o. daily. 6. Senna 1 tab p.o. b.i.d. p.r.n. 7. Famotidine 20 mg p.o. b.i.d. 8. Atorvastatin 5 mg p.o. q.h.s. 9. Metformin 1000 mg p.o. b.i.d. ISSUES TO BE ADDRESSED AT FOLLOWUP: 1. Cognitive function and mobility and functional status. He will continue physical therapy and speech and language pathology on an outpatient basis. He can follow up with all 3 physicians with whom he has followups regarding these issues. 2. Hypertension and diabetes. He can follow up with his primary care physician regarding ongoing management with special attention to blood pressure , as his medications have been reduced. /[id number]/MODL MTDD
== END 2017-02-04 14:10 | disposition home or self-care (01) | DRG 945 ==
LOC: BREH 14:52
PROVIDERS: ADMIT Internal Medicine; ATTEND Internal Medicine
PROC: F07M3ZZ Motor Function Treatment of Musculoskeletal System - Whole Body (ICD-10-PCS; principal; 2017-01-16)
PROC: F08Z7ZZ Vocational Activities and Functional Community or Work Reintegration Skills Treatment (ICD-10-PCS; principal; 2017-01-16)
PROC: F0636ZZ Communicative/Cognitive Integration Skills Treatment of Neurological System - Whole Body (ICD-10-PCS; principal; 2017-01-16)
DX: S06.5X9D Traumatic subdural hemorrhage with loss of consciousness of unspecified duration, subsequent encounter (principal); S06.6X9D Traumatic subarachnoid hemorrhage with loss of consciousness of unspecified duration, subsequent encounter; G31.84 Mild cognitive impairment of uncertain or unknown etiology; E87.1 Hypo-osmolality and hyponatremia; R53.81 Other malaise; E11.9 Type 2 diabetes mellitus without complications; I10 Essential (primary) hypertension; I95.1 Orthostatic hypotension; W20.8XXD Other cause of strike by thrown, projected or falling object, subsequent encounter; M25.559 Pain in unspecified hip
CPT/HCPCS: 92507-GN; 92522-GN; 97110-GO; 97110-GP; 97112-GO; 97112-GP; 97116-GP; 97162-GP; 97166-GO; 97530-GO; 97530-GP; 97532-GO; 97535-GO; 99366-GO; J1815